=== PATIENT | female | born 1985 | race Caucasian/White ===

== ENCOUNTER 2017-03-20 22:35 | Emergency (ER) | payer BC, OTHER ==
[~2017-03-20] VITALS: Ht 154.9 cm; Wt 83.8 kg
[~2017-03-20 22:35] MED LIST: GARC1TAB PO; MULT-728 PO
[2017-03-20 22:41] VITALS: TEMP 36.6; Ht 154.9 cm; Wt 83.8 kg
[2017-03-20] MEDS ORDERED: ASPIRIN 81 MG CHEW PO STA (23:26)
[2017-03-20] MEDS ORDERED: KETOROLAC TROMETHAMINE 60 MG/2 ML VIAL IM STA (23:26)
[2017-03-20] MEDS ORDERED: LEVO50TA6 PO (23:29)
[2017-03-20] MEDS ORDERED: IBUP-1050 PO (23:29)
[2017-03-20] MEDS ORDERED: MULT-506 PO (23:29)
[2017-03-20] MEDS ORDERED: ACET-1256 PO (23:29)
[2017-03-20 23:40] VITALS: BP 112/67; PULSE 81; O2SAT 100
--- NOTE | 2017-03-21 01:31 | EMERGENCY ROOM VISIT NOTE ---
History Report prepared by Marli: Wendie Guzman Under the Supervision of: Dr. Riki Chirinos D.O. First contact with patient: 22:59 Chief Complaint: SUN BURN Stated Complaint: REALLY BAD SUNBURN,BLISTERS COVERING LEGS History of Present Illness The patient is a 31 year old female who presents to the Emergency Room with complaints of persistent sunburn starting 4 days ago. [place] the [place] She was not wearing sunscreen. She started having bubbles on her legs around 36 hours later. The bubbles have worsened since then. She does not have bubbles elsewhere on her skin. She has been taking Tylenol and ibuprofen to no significant relief. She has been taking multivitamins. She felt nauseous earlier. She has no other complaints. She denies any fever, headache, chest pain, SOB, or vomiting. Her tetanus is up to date. Source of History: patient Onset: 4 days ago Position: other (skin) Quality: other (sunburn) Timing: other (persistent) Associated Symptoms: + nausea, No fevers, No headache, No chest pain, No SOB , No vomiting Note: Pt reports blistering. Review of Systems See HPI for pertinent positives & negatives. A total of 10 systems reviewed and were otherwise negative. Past Medical & Surgical Medical Problems: (1) No Known Active Medical Problems Family History Diabetes mellitus FH: cancer FH: heart disease Hypertension Kidney disease Kidney stones Social History Smoking Status: Never Smoker Drug Use: none Marital Status: in relationship Housing Status: lives with significant other Occupation Status: employed Current/Historical Medications Scheduled Levothyroxine Sodium (Levothyroxine Sodium), 50 MCG PO DAILY Multivitamin (Multivitamin), 1 TAB PO DAILY Scheduled PRN Acetaminophen (Tylenol), 1,000 MG PO Q4 PRN for Pain Ibuprofen (Advil), 200-600 MG PO Q4H PRN for Pain Allergies Coded Allergies: Pecan (Verified Allergy, Severe, HIVES-SWELLING, 03/20/17) POLLEN (Verified Allergy, Intermediate, SNEEZING, RUNNY NOSE, ITCHY EYES. , 03/20/17) Penicillins (Verified Allergy, Unknown, FAMILY HX, 03/20/17) Physical Exam Vital Signs Date Time Temp Pulse Resp B/P (MAP) Pulse Ox O2 Delivery O2 Flow Rate FiO2 03/20/17 23:40 81 20 112/67 100 Room Air 03/20/17 23:12 Room Air 03/20/17 22:41 36.6 84 20 143/81 92 Room Air Physical Exam GENERAL: sitting up in bed, disheveled, no acute distress, nontoxic EYE EXAM: normal conjunctiva OROPHARYNX: no exudate, no erythema, lips, buccal mucosa, and tongue normal and mucous membranes are moist NECK: supple, no nuchal rigidity, no adenopathy, non-tender LUNGS: Clear to auscultation. Normal chest wall mechanics HEART: no murmurs, S1 normal and S2 normal ABDOMEN: abdomen soft, non-tender, normo-active bowel sounds, no masses, no rebound or guarding. BACK: Back is symmetrical on inspection and there is no deformity, no midline tenderness, no CVA tenderness. SKIN: diffuse erythematous rash on anterior aspect of the entire body with multiple vesicles in the lower extremities with clear/yellow fluid the largest being 5 cm x 3 cm on the left leg and 3 cm x 2 cm on the right leg. DP 2/4, gross sensation intact, old ruptured blisters on right thigh. UPPER EXTREMITIES: upper extremities are grossly normal. LOWER EXTREMITIES: No pitting edema. NEURO EXAM: Normal sensorium, cranial nerves II-XII grossly intact, normal speech, no gross weakness of arms, no gross weakness of legs. Medical Decision & Procedures Medications Administered Medications (Trade) Dose Ordered Sig/Kendra Route Start Time Stop Time Status Last Admin Dose Admin Aspirin (Aspirin Chew) 324 mg NOW STAT PO 03/20/17 23:26 03/20/17 23:28 DC 03/20/17 23:35 324 MG Ketorolac Tromethamine (Toradol Inj) 60 mg NOW STAT IM 03/20/17 23:26 03/20/17 23:28 DC 03/20/17 23:36 60 MG ED Course ED COURSE: Vital signs were reviewed and showed normal vitals The patients medical record was reviewed The above diagnostic studies were performed and reviewed. ED treatments and interventions as stated above. 2300: The patient was evaluated in room A12B. A complete history and physical examination was performed. 2326: Toradol Inj 60 mg IM, Aspirin 324 mg PO. 2328: Upon reevaluation, the patient is doing well.I discussed my findings with the patient and she understands and agrees with the treatment plan. Based on the patients age, coexisting illnesses, exam and lab findings the decision to treat as an outpatient was made. The patient remained stable while under my care. The patient appeared well at the time of discharge. Medical Decision Differential diagnosis includes etiologies such as cellulitis, abscess, MRSA infection, DVT, necrotizing fasciitis, dermatitis, drug eruption, as well as others were entertained. Medication Reconciliation: I attest that I have personally reviewed the patient' s current medication list. Blood pressure screening: Patient was found to have normal blood pressure on screening and does not require follow-up. Patient is a 31-year-old female who presents the ER for diffuse sunburn on her lower extremities. She does have partial-thickness werner with blistering on bilateral tibias. There is no signs of infection. No fevers greater than 100.4. Patient otherwise well-appearing. The burn is just on the anterior portion of her legs and upper extremities. There is no obvious infection. She has been taking Tylenol and Motrin. She was given Toradol and aspirin. Recommended continuing a multivitamin. She was discharged to follow-up with her primary care doctor with first-degree and partial-thickness second-degree sunburn. Recommended continuing aloe and patient will follow up with PCP in 2 days. Discussed with Pt concerning signs and symptoms to watch out for. Pt was instructed to follow up with their PCP and discussed with the patient their option to return to the ED at anytime for persistent or worsening symptoms. The appropriate anticipatory guidance and out-patient management, including indications for return to the emergency department, were explained at length to the patient and understood. Impression Primary Impression: Partial thickness sunburn Scribe Attestation The scribe's documentation has been prepared under my direction and personally reviewed by me in its entirety. I confirm that the note above accurately reflects all work, treatment, procedures, and medical decision making performed by me. Departure Information Dispostion Home / Self-Care Referrals Luna Matthews D.O. (PCP) Forms HOME CARE DOCUMENTATION FORM, IMPORTANT VISIT INFORMATION, WORK / SCHOOL INSTRUCTIONS Patient Instructions My [facility], [place] Additional Instructions Please follow up with your primary care doctor with in the next 24 hours. Any worsening of your symptoms, please return to the ED immediately. This includes purulent discharge from wounds, fevers greater than 100.4, worsening pain, or any other concerning signs or symptoms from her standpoint. Please use Motrin and Tylenol as needed for pain. Please continue multivitamin. Please apply an antibiotic ointment to the blisters as needed. Please use aloe as needed.
== END 2017-03-21 00:01 | disposition home or self-care (01) ==
LOC: C.EDB 22:36 → C.EDA 03-21 00:01
DX: L55.1 Sunburn of second degree (principal); Z79.899 Other long term (current) drug therapy; Z88.0 Allergy status to penicillin; Z91.018 Allergy to other foods; Z91.09 Other allergy status, other than to drugs and biological substances; Z83.3 Family history of diabetes mellitus; Z80.9 Family history of malignant neoplasm, unspecified; Z82.49 Family history of ischemic heart disease and other diseases of the circulatory system; Z84.1 Family history of disorders of kidney and ureter

== ENCOUNTER → 2017-04-24 | Outpatient (CLI) | payer OTHER ==
[~2017-04-24] MED LIST changes: +ACET-1256 PO; -GARC1TAB PO; +IBUP-1050 PO; +LEVO50TA6 PO; +MULT-506 PO; -MULT-728 PO
[2017-04-24 09:39] LABS: BASO % 0.4 %; BASO ABS # 0.02 K/uL (0-0.2); COMPLETE YES; EOS % 2.5 %; HEMATOCRIT 43.2 % (37-47); IG% 0.4 %; LYMPH % 32.6 %; LYMPH ABS # 1.82 K/uL (1.2-3.4); MEAN CELL VOLUME 85.9 fL (80-100); MEAN CORPUSCULAR HEMOGLOBIN 28.4 pg (25-34); MEAN CORPUSCULAR HGB CONC 33.1 g/dl (32-36); MONO % 10.6 %; NEUT % 53.5 %; PLATELET COUNT 196 K/uL (130-400); RED BLOOD COUNT 5.03 M/uL (4.2-5.4); WHITE BLOOD COUNT 5.58 K/uL (4.8-10.8)
[2017-04-24 10:08] LABS: BLOOD UREA NITROGEN 12 mg/dl (7-18); BUN/CREATININE RATIO 11.9 (10-20); CALCIUM 9.1 mg/dl (8.5-10.1); CARBON DIOXIDE 29 mmol/L (21-32); CHLORIDE 106 mmol/L (98-107); CREATININE 0.97 mg/dl (0.60-1.20); GLUCOSE 83 mg/dl (70-99); POTASSIUM 3.8 mmol/L (3.5-5.1); SODIUM 140 mmol/L (136-145)
== END | disposition home or self-care (01) ==
LOC: C.LAB 08:51
PROVIDERS: ATTEND Family Medicine
DX: E03.9 Hypothyroidism, unspecified (principal); N92.6 Irregular menstruation, unspecified

== ENCOUNTER 2019-07-24 07:27 | Inpatient (IN) ==
[2019-07-24] MEDS ORDERED: OXYTOCIN 30 UNITS/500 ML BAG IV PRN (08:55)
[2019-07-24] MEDS ORDERED: DINOPROSTONE 10 MG INSERT PV ONE ×2 (08:55→22:13)
--- NOTE | 2019-07-24 09:01 | Obstetrical Progress Note ---
Date of Service July 24, 2019 Subjective Admit Note 33 F P0000 at 40.5 weeks admitted to L&D for induction for post-dates . FHT Cat 1 with no contractions. Her GBS is positive. No problems. Cervix is closed/50/-3/vertex/soft. Will start ripening cervix with Cervidil. Results & Data Vital Signs (Past 12 Hours) Vital Signs Temp Pulse Resp BP 07/24/19 07:31 37.1 C 100 H 20 134/85
[2019-07-24] MEDS ORDERED: PENICILLIN G POTASSIUM 6 MU in DEXTROSE 5% 250 ML IV ONE (09:30)
--- NOTE | 2019-07-24 09:30 | Obstetrical Progress Note ---
Date of Service July 24, 2019 Physical Exam Genitourinary: OB Exam Monitor Tracing: + external FHT monitor used, + external uterine monitor used and + category I Cervidil 10 mg placed vaginally Results & Data Vital Signs (Past 12 Hours) Vital Signs Temp Pulse Resp BP 07/24/19 09:28 90 106/59 L 07/24/19 07:31 37.1 C 100 H 20 134/85
[2019-07-24 09:32] LABS: Hematocrit (blood only) 33.6 % (37-47); Hemoglobin 11.4 g/dL (12.0-16.0); Mean Corpuscular Hemoglobin 29.5 pg (25-34); Mean Corpuscular Volume 86.8 fL (80-100); Mean Platelet Volume 11.4 fL (7.4-10.4); Platelet Count 150 K/uL (130-400); RDW Standard Deviation 46.7 fL (36.4-46.3); Red Blood Count 3.87 M/uL (4.2-5.4); White Blood Count 10.21 K/uL (4.8-10.8)
[2019-07-24 09:40] LABS: Mean Corpuscular Hgb Conc 33.9 g/dL (32-36)
[2019-07-24] MEDS: BUTORPHANOL TARTRATE 1 MG/ML VIAL IV PRN ×2 (20:43→23:52)
--- NOTE | 2019-07-24 21:40 | Obstetrical Progress Note ---
Date of Service July 24, 2019 Physical Exam Genitourinary: Manual OB Exam: + cervical dilation 1 cm, + cervical effacement 50% and + station high OB Exam Monitor Tracing: + external FHT monitor used, + external uterine monitor used, + category I and + normal FHT variability Cervidil removed from vagina. Will plan to place another Cervidil. Results & Data Vital Signs (Past 12 Hours) Vital Signs Temp Pulse Resp BP Pulse Ox 07/24/19 21:33 90 95 07/24/19 21:28 103 H 98 07/24/19 21:23 80 94 07/24/19 21:18 82 94 07/24/19 21:13 86 94 07/24/19 21:08 95 H 94 07/24/19 21:03 85 94 07/24/19 20:58 90 95 07/24/19 20:53 86 96 07/24/19 20:52 98 H 92 07/24/19 20:48 101 H 97 07/24/19 20:43 97 H 97 07/24/19 20:37 97 H 93 07/24/19 18:57 37.3 C 18 07/24/19 18:56 105 H 146/78 H 07/24/19 15:04 36.7 C 88 18 121/72 07/24/19 11:31 88 139/72 07/24/19 11:30 37.3 C 20
--- NOTE | 2019-07-24 23:24 | Obstetrical Progress Note ---
Date of Service July 24, 2019 Physical Exam Genitourinary: Cervidil 10 mg placed vaginally. Results & Data Vital Signs (Past 12 Hours) Vital Signs Temp Pulse Resp BP Pulse Ox 07/24/19 21:53 92 H 97 07/24/19 21:48 103 H 98 07/24/19 21:43 78 96 07/24/19 21:38 93 H 97 07/24/19 21:33 90 95 07/24/19 21:28 103 H 98 07/24/19 21:23 80 94 07/24/19 21:18 82 94 07/24/19 21:13 86 94 07/24/19 21:08 95 H 94 07/24/19 21:03 85 94 07/24/19 20:58 90 95 07/24/19 20:53 86 96 07/24/19 20:52 98 H 92 07/24/19 20:48 101 H 97 07/24/19 20:43 97 H 97 07/24/19 20:37 97 H 93 07/24/19 18:57 37.3 C 18 07/24/19 18:56 105 H 146/78 H 07/24/19 15:04 36.7 C 88 18 121/72 07/24/19 11:31 88 139/72 07/24/19 11:30 37.3 C 20
[2019-07-25] MEDS: BUTORPHANOL TARTRATE 1 MG/ML VIAL IV PRN ×2 (00:12→03:22)
--- NOTE | 2019-07-25 04:03 | Obstetrical Progress Note ---
Date of Service July 25, 2019 Physical Exam Genitourinary: Manual OB Exam: + cervical dilation 1 cm, + cervical effacement 70% and + station high OB Exam Monitor Tracing: + external FHT monitor used, + external uterine monitor used and + category I Patient with Cervidil in place contractions starting to be painful and she is requesting an eoidural. Results & Data Vital Signs (Past 12 Hours) Vital Signs Temp Pulse Resp BP Pulse Ox 07/25/19 03:59 118 H 97 07/25/19 03:54 107 H 95 07/25/19 03:49 109 H 125/77 96 07/25/19 03:48 37.2 C 18 07/25/19 03:44 92 H 91 07/25/19 03:39 88 92 07/25/19 03:38 93 H 87 L 07/25/19 03:34 91 H 91 07/25/19 03:29 93 H 93 07/25/19 00:00 37.2 C 18 07/24/19 23:42 89 120/67 07/24/19 21:53 92 H 97 07/24/19 21:48 103 H 98 07/24/19 21:43 78 96 07/24/19 21:38 93 H 97 07/24/19 21:33 90 95 07/24/19 21:28 103 H 98 07/24/19 21:23 80 94 07/24/19 21:18 82 94 07/24/19 21:13 86 94 07/24/19 21:08 95 H 94 07/24/19 21:03 85 94 07/24/19 20:58 90 95 07/24/19 20:53 86 96 07/24/19 20:52 98 H 92 07/24/19 20:48 101 H 97 07/24/19 20:43 97 H 97 07/24/19 20:37 97 H 93 07/24/19 18:57 37.3 C 18 07/24/19 18:56 105 H 146/78 H
[2019-07-25] MEDS: LACTATED RINGER'S 1,000 ML IV PRN ×3 (04:05→16:12)
[2019-07-25] MEDS ORDERED: BUPIVACAINE 0.25% 30 ML VIAL ONE ×2 (04:06→17:57)
[2019-07-25] MEDS ORDERED: fentaNYL 2MCG/ML ROPIV 1.25MG/ML 100 ML BAG EPI ONE (04:06)
[2019-07-25] MEDS ORDERED: ePHEDrine sulfate 50 MG/ML AMP ONE (04:06)
[2019-07-25] MEDS ORDERED: fentaNYL citrate 100 MCG/2 ML VIAL ONE (04:06)
--- NOTE | 2019-07-25 04:32 | Anesthesiology Consultation ---
Date of Service July 25, 2019 Assessment & Plan (1) Encounter for pre-operative examination: Chart Review Chart Review: Acceptable Risk for Labor Epidural History Height/Weight Height: 5 ft 1 in Weight: 98.43 kg Allergies Allergy/AdvReac Type Severity Reaction Status Date / Time pecan nut Allergy Severe HIVES-SWELL Verified 07/24/19 07:39 ING pollen extracts Allergy Intermediate SNEEZING, Verified 07/24/19 07:39 RUNNY NOSE, ITCHY EYES. Medications Home Medications Medication Instructions Recorded Confirmed Last Taken PNV cmb#95-ferrous fumarate-FA 1 tab PO DAILY 04/19/19 07/24/19 07/23/19 21:00 [] Active Medications Generic Name Dose Route Start Last Admin Trade Name Freq PRN Reason Stop Dose Admin Butorphanol Tartrate 1 mg 07/24/19 20:21 07/25/19 03:22 Stadol IV 08/23/19 20:20 1 mg Q2H PRN Administration Pain Lactated Ringer's 1,000 mls @ 125 mls/hr 07/24/19 08:55 07/25/19 04:05 Lr IV 07/26/19 08:54 999 mls/hr .Q8H PRN Administration L&D Protocol Protocol Past Medical History Medical History No significant past medical history Past Surgical History Surgical History History of tonsillectomy Social History Smoking Status: Never smoker Hx Alcohol Use: No Hx Substance Use: No substance use type: does not use Physical Exam Vital Signs Last Vital Signs Temp 37.2 C 07/25/19 03:48 Pulse 90 07/25/19 04:29 Resp 18 07/25/19 03:48 BP 125/77 07/25/19 03:49 Pulse Ox 95 07/25/19 04:29 Testing Laboratory Results 07/24/19 09:16
[2019-07-25] MEDS ORDERED: ONDANSETRON INJ 2 MG/ML 2 ML VIAL IV PRN (05:01)
[2019-07-25] MEDS ORDERED: NALOXONE HCL 1 MG in SODIUM CHLORIDE 0.9% 1000ML 1,000 ML IV PRN (05:01)
[2019-07-25] MEDS ORDERED: ePHEDrine sulfate 50 MG/ML AMP IV PRN (05:01)
[2019-07-25] MEDS ORDERED: NALOXONE HCL 0.4 MG/1 ML VIAL/CARP IV PRN (05:01)
[2019-07-25] MEDS ORDERED: fentaNYL 2MCG/ML ROPIV 1.25MG/ML 100 ML BAG EPI PRN (05:01)
--- NOTE | 2019-07-25 07:39 | Labor Progress Brief Note ---
Date of Service July 25, 2019 Pt signed out to me Met pt and reviewed care FHR; CAT1 Ctx 4-6mins /50/-3 Received Cervidil X2 last Cervidil was only for 4 hrs Plan Cytotec X1 reevaluate in 4 hrs Pt agrees with plan Results & Data Vital Signs (Past 12 Hours) Vital Signs Temp Pulse Resp BP Pulse Ox 07/25/19 07:32 98 H 94 07/25/19 07:27 109 H 95 07/25/19 07:22 102 H 94 07/25/19 07:21 110 H 119/65 07/25/19 07:17 109 H 96 07/25/19 07:12 110 H 95 07/25/19 07:07 105 H 126/68 96 07/25/19 07:05 37.3 C 20 07/25/19 07:02 106 H 93 07/25/19 07:00 18 07/25/19 06:57 94 H 94 07/25/19 06:52 95 H 94 07/25/19 06:51 88 123/56 L 07/25/19 06:47 90 93 07/25/19 06:42 94 H 93 07/25/19 06:37 89 94 07/25/19 06:36 100 H 121/57 L 07/25/19 06:32 91 H 94 07/25/19 06:30 16 07/25/19 06:27 92 H 92 07/25/19 06:22 86 124/63 93 07/25/19 06:17 91 H 93 07/25/19 06:15 16 07/25/19 06:12 94 H 93 07/25/19 06:07 109 H 94 07/25/19 06:03 83 121/59 L 88 L 07/25/19 06:02 90 92 07/25/19 06:00 18 07/25/19 05:58 85 117/64 07/25/19 05:57 87 92 07/25/19 05:53 87 119/62 07/25/19 05:52 90 92 07/25/19 05:49 85 121/70 89 L 07/25/19 05:47 89 93 07/25/19 05:45 16 07/25/19 05:43 90 124/70 07/25/19 05:42 88 93 07/25/19 05:38 83 119/69 07/25/19 05:37 89 93 07/25/19 05:34 83 123/72 07/25/19 05:32 91 H 92 07/25/19 05:30 18 07/25/19 05:28 85 122/73 07/25/19 05:27 90 93 07/25/19 05:23 91 H 123/71 07/25/19 05:22 91 H 94 07/25/19 05:18 93 H 121/72 07/25/19 05:17 92 H 94 07/25/19 05:15 16 07/25/19 05:13 106 H 120/72 07/25/19 05:12 95 H 94 07/25/19 05:08 104 H 126/76 07/25/19 05:07 108 H 97 07/25/19 05:06 106 H 123/69 07/25/19 05:04 108 H 119/71 07/25/19 05:02 104 H 126/74 94 07/25/19 05:00 98 H 121/71 07/25/19 04:58 98 H 128/78 07/25/19 04:57 100 H 94 07/25/19 04:52 110 H 95 07/25/19 04:47 109 H 96 07/25/19 04:42 118 H 95 07/25/19 04:34 92 H 93 07/25/19 04:29 90 95 07/25/19 04:24 93 H 92 07/25/19 04:19 100 H 95 07/25/19 04:14 95 H 94 07/25/19 04:09 101 H 94 07/25/19 04:04 90 94 07/25/19 03:59 118 H 97 07/25/19 03:54 107 H 95 07/25/19 03:49 109 H 125/77 96 07/25/19 03:48 37.2 C 18 07/25/19 03:44 92 H 91 07/25/19 03:39 88 92 07/25/19 03:38 93 H 87 L 07/25/19 03:34 91 H 91 07/25/19 03:29 93 H 93 07/25/19 00:00 37.2 C 18 07/24/19 23:42 89 120/67 07/24/19 21:53 92 H 97 07/24/19 21:48 103 H 98 07/24/19 21:43 78 96 07/24/19 21:38 93 H 97 07/24/19 21:33 90 95 07/24/19 21:28 103 H 98 07/24/19 21:23 80 94 07/24/19 21:18 82 94 07/24/19 21:13 86 94 07/24/19 21:08 95 H 94 07/24/19 21:03 85 94 07/24/19 20:58 90 95 07/24/19 20:53 86 96 07/24/19 20:52 98 H 92 07/24/19 20:48 101 H 97 07/24/19 20:43 97 H 97 07/24/19 20:37 97 H 93
[2019-07-25] MEDS ORDERED: miSOPROStoL 50 MCG TAB PO SCH (07:45)
[2019-07-25] MEDS ORDERED: OXYTOCIN 30 UNITS/500 ML BAG IV PRN (12:50)
--- NOTE | 2019-07-25 12:50 | Labor Progress Brief Note ---
Date of Service July 25, 2019 Doing well FHR; CAT! Ctx; 2-5mins VE; 2/50/-2/post/soft EFW; 8-9lbs will start Pitocin augmentation Results & Data Vital Signs (Past 12 Hours) Vital Signs Temp Pulse Resp BP Pulse Ox 07/25/19 12:47 104 H 94 07/25/19 12:42 104 H 94 07/25/19 12:37 99 H 94 07/25/19 12:36 94 H 134/77 07/25/19 12:32 89 94 07/25/19 12:27 95 H 93 07/25/19 12:22 95 H 92 07/25/19 12:21 99 H 125/69 07/25/19 12:17 94 H 93 07/25/19 12:12 100 H 94 07/25/19 12:10 37.3 C 20 07/25/19 12:07 111 H 96 07/25/19 12:06 108 H 136/74 07/25/19 12:02 106 H 94 07/25/19 11:57 103 H 95 07/25/19 11:52 98 H 94 07/25/19 11:51 102 H 133/84 07/25/19 11:47 106 H 95 07/25/19 11:42 101 H 96 07/25/19 11:37 102 H 95 07/25/19 11:36 95 H 146/80 H 07/25/19 11:32 104 H 96 07/25/19 11:27 106 H 95 07/25/19 11:23 104 H 158/81 H 07/25/19 11:22 104 H 93 07/25/19 11:17 98 H 94 07/25/19 11:12 114 H 95 07/25/19 11:07 103 H 134/60 95 07/25/19 11:02 101 H 94 07/25/19 10:57 96 H 94 07/25/19 10:52 100 H 92 07/25/19 10:51 98 H 118/64 07/25/19 10:47 98 H 93 07/25/19 10:42 98 H 94 07/25/19 10:37 100 H 93 07/25/19 10:36 91 H 112/65 07/25/19 10:32 97 H 93 07/25/19 10:30 16 07/25/19 10:27 99 H 93 07/25/19 10:22 98 H 94 07/25/19 10:21 100 H 128/65 07/25/19 10:17 112 H 94 07/25/19 10:12 99 H 94 07/25/19 10:07 97 H 94 07/25/19 10:06 91 H 120/64 07/25/19 10:02 97 H 93 07/25/19 10:00 20 07/25/19 09:57 102 H 94 07/25/19 09:52 100 H 93 07/25/19 09:51 95 H 116/57 L 07/25/19 09:47 99 H 94 07/25/19 09:42 99 H 93 07/25/19 09:37 97 H 122/61 93 07/25/19 09:32 96 H 94 07/25/19 09:27 97 H 94 07/25/19 09:22 104 H 132/82 95 07/25/19 09:17 95 H 93 07/25/19 09:12 90 92 07/25/19 09:07 90 92 07/25/19 09:06 85 119/59 L 07/25/19 09:02 92 H 92 07/25/19 09:00 18 07/25/19 08:57 91 H 92 07/25/19 08:52 89 93 07/25/19 08:51 90 124/60 19 08:47 89 94 07/25/19 08:42 90 92 07/25/19 08:37 106 H 130/61 93 07/25/19 08:32 103 H 94 07/25/19 08:27 92 H 92 07/25/19 08:22 100 H 93 07/25/19 08:21 100 H 143/75 H 07/25/19 08:17 101 H 94 07/25/19 08:12 105 H 94 07/25/19 08:07 110 H 95 07/25/19 08:06 115 H 128/73 07/25/19 08:02 104 H 95 07/25/19 07:57 112 H 95 17 07:52 106 H 95 07/25/19 07:51 106 H 134/68 19 07:47 112 H 95 07/25/19 07:42 93 H 94 07/25/19 07:37 98 H 94 07/25/19 07:36 104 H 130/69 07/25/19 07:32 98 H 94 07/25/19 07:27 109 H 95 07/25/19 07:22 102 H 94 07/25/19 07:21 110 H 119/65 07/25/19 07:17 109 H 96 07/25/19 07:12 110 H 95 07/25/19 07:07 105 H 126/68 96 07/25/19 07:05 37.3 C 20 07/25/19 07:02 106 H 93 07/25/19 07:00 18 07/25/19 06:57 94 H 94 07/25/19 06:52 95 H 94 07/25/19 06:51 88 123/56 L 07/25/19 06:47 90 93 07/25/19 06:42 94 H 93 07/25/19 06:37 89 94 07/25/19 06:36 100 H 121/57 L 07/25/19 06:32 91 H 94 07/25/19 06:30 16 07/25/19 06:27 92 H 92 07/25/19 06:22 86 124/63 93 07/25/19 06:17 91 H 93 07/25/19 06:15 16 07/25/19 06:12 94 H 93 07/25/19 06:07 109 H 94 07/25/19 06:03 83 121/59 L 88 L 07/25/19 06:02 90 92 07/25/19 06:00 18 07/25/19 05:58 85 117/64 07/25/19 05:57 87 92 07/25/19 05:53 87 119/62 07/25/19 05:52 90 92 07/25/19 05:49 85 121/70 89 L 07/25/19 05:47 89 93 07/25/19 05:45 16 07/25/19 05:43 90 124/70 07/25/19 05:42 88 93 07/25/19 05:38 83 119/69 07/25/19 05:37 89 93 07/25/19 05:34 83 123/72 07/25/19 05:32 91 H 92 07/25/19 05:30 18 10/17/19 05:28 85 122/73 07/25/19 05:27 90 93 07/25/19 05:23 91 H 123/71 07/25/19 05:22 91 H 94 07/25/19 05:18 93 H 121/72 07/25/19 05:17 92 H 94 07/25/19 05:15 16 07/25/19 05:13 106 H 120/72 07/25/19 05:12 95 H 94 07/25/19 05:08 104 H 126/76 07/25/19 05:07 108 H 97 07/25/19 05:06 106 H 123/69 07/25/19 05:04 108 H 119/71 07/25/19 05:02 104 H 126/74 94 07/25/19 05:00 98 H 121/71 07/25/19 04:58 98 H 128/78 07/25/19 04:57 100 H 94 07/25/19 04:52 110 H 95 07/25/19 04:47 109 H 96 07/25/19 04:42 118 H 95 07/25/19 04:34 92 H 93 07/25/19 04:29 90 95 07/25/19 04:24 93 H 92 07/25/19 04:19 100 H 95 07/25/19 04:14 95 H 94 07/25/19 04:09 101 H 94 07/25/19 04:04 90 94 07/25/19 03:59 118 H 97 07/25/19 03:54 107 H 95 07/25/19 03:49 109 H 125/77 96 07/25/19 03:48 37.2 C 18 07/25/19 03:44 92 H 91 07/25/19 03:39 88 92 07/25/19 03:38 93 H 87 L 07/25/19 03:34 91 H 91 07/25/19 03:29 93 H 93
[2019-07-25] MEDS: PENICILLIN G POTASSIUM 3 MU in DEXTROSE 5% 100 ML IV PRN ×2 (17:40→21:40)
--- NOTE | 2019-07-25 18:36 | Anesthesiology Progress Note ---
Date of Service July 25, 2019 Subjective Called by RN for increasing pain. Patient had epidural placed at 5am today, was working well but less effective over the course of last 2-3 horus. She has pushed PCEA button several times and rate was increased to 12cc/hr by RN with minimial benefit. Sensory level checked with ice cubes only effective to L1 on L and T10 on R. She was hand bolused with 10cc of 0.125% marcaine which significantly improved her pain control, and PCEA interval was decreased from 20min to 10min to help maintain anesthetic level. Physical Exam Vital Signs: Last Vital Signs Temp 37.2 C 07/25/19 15:00 Pulse 108 H 07/25/19 18:29 Resp 16 07/25/19 15:55 BP 148/85 H 07/25/19 18:22 Pulse Ox 84 L 07/25/19 18:29 Results & Data Medications Administered Lactated Ringer's (Lr) 1,000 mls @ 125 mls/hr IV .Q8H PRN; Protocol PRN Reason: L&D Protocol Stop: 07/26/19 08:54 Last Infusion: 07/25/19 17:40 Dose: 0 mls/hr Documented by: [id number] Admin: 07/25/19 16:12 Dose: 125 mls/hr Documented by: [id number] Infusion: 07/25/19 14:37 Dose: 125 mls/hr Documented by: [id number] Admin: 07/25/19 06:37 Dose: 125 mls/hr Documented by: [id number] Infusion: 07/25/19 06:29 Dose: 999 mls/hr Documented by: [id number] Infusion: 07/25/19 06:10 Dose: 999 mls/hr Documented by: [id number] Infusion: 07/25/19 04:35 Dose: 125 mls/hr Documented by: [id number] Admin: 07/25/19 04:05 Dose: 999 mls/hr Documented by: [id number] Penicillin G Potassium 3 mu/ (Dextrose) 106 mls @ 100 mls/hr IV Q4H PRN PRN Reason: Give until delivery Stop: 08/03/19 08:54 Last Admin: 07/25/19 17:40 Dose: 100 mls/hr Documented by: [id number] Oxytocin (Pitocin) 30 units in 500 mls @ 14 mls/hr IV .Q24H PRN; Protocol PRN Reason: Labor Induction/Augmentation Stop: 07/27/19 12:49 Last Titration: 07/25/19 18:10 Dose: 0.96 units/hr, 16 mls/hr Documented by: [id number] Titration: 07/25/19 16:40 Dose: 0.84 units/hr, 14 mls/hr Documented by: [id number] Titration: 07/25/19 16:05 Dose: 0.72 units/hr, 12 mls/hr Documented by: [id number] Titration: 07/25/19 15:25 Dose: 0.6 units/hr, 10 mls/hr Documented by: [id number] Titration: 07/25/19 14:50 Dose: 0.48 units/hr, 8 mls/hr Documented by: [id number] Titration: 07/25/19 14:11 Dose: 0.36 units/hr, 6 mls/hr Documented by: [id number] Titration: 07/25/19 13:38 Dose: 0.24 units/hr, 4 mls/hr Documented by: [id number] Admin: 07/25/19 13:08 Dose: 0.12 units/hr, 2 mls/hr Documented by: [id number] Cosigned by: [id number] Misoprostol (Cytotec) 50 mcg PO ONCE JALEN Stop: 08/24/19 07:44 Last Admin: 07/25/19 08:07 Dose: 50 mcg Documented by: [id number]
[2019-07-25] MEDS: fentaNYL 2MCG/ML ROPIV 1.25MG/ML 100 ML BAG EPI PRN ×2 (19:12→23:42)
--- NOTE | 2019-07-25 19:43 | Labor Progress Brief Note ---
Date of Service July 25, 2019 Pt doing well pit; 16mu Ctx 2-5mins SROM 19;10 - Clear VE; 2/50/-2 continue Pitocin augmentation Results & Data Vital Signs (Past 12 Hours) Vital Signs Temp Pulse Resp BP Pulse Ox 07/25/19 19:38 83 96 07/25/19 19:37 86 128/72 07/25/19 19:34 96 H 146/73 H 07/25/19 19:33 97 H 98 07/25/19 19:28 97 H 97 07/25/19 19:23 92 H 97 07/25/19 19:22 95 H 157/105 H 07/25/19 19:18 103 H 99 07/25/19 19:15 37.3 C 92 H 18 97 07/25/19 19:13 107 H 98 07/25/19 19:08 88 97 07/25/19 19:07 88 129/80 07/25/19 19:03 80 95 07/25/19 18:58 97 H 98 07/25/19 18:53 82 96 07/25/19 18:51 88 131/77 07/25/19 18:48 95 H 99 07/25/19 18:43 96 H 98 07/25/19 18:38 101 H 97 07/25/19 18:37 97 H 137/88 07/25/19 18:33 97 H 96 07/25/19 18:29 108 H 84 L 07/25/19 18:28 108 H 90 07/25/19 18:23 107 H 95 07/25/19 18:22 98 H 148/85 H 07/25/19 18:18 109 H 98 07/25/19 18:16 116 H 88 L 07/25/19 18:13 107 H 97 07/25/19 18:08 92 H 97 07/25/19 18:07 90 121/70 07/25/19 18:04 89 122/71 07/25/19 18:03 98 H 123/73 97 07/25/19 17:58 100 H 97 19 17:53 80 98 07/25/19 17:52 93 H 121/78 19 17:48 95 H 98 19 17:43 97 H 97 07/25/19 17:38 103 H 98 10/17/19 17:36 99 H 125/66 17/19 17:33 91 H 97 17/19 17:31 88 126/64 17/19 17:28 93 H 99 17/19 17:23 83 96 17/19 17:18 81 96 17/19 17:13 93 H 97 17/19 17:08 104 H 99 17/19 17:07 93 H 128/65 17/19 17:03 88 96 17/19 16:58 100 H 98 17/19 16:53 92 H 98 17/19 16:52 94 H 128/70 17/19 16:48 112 H 95 17/19 16:43 91 H 97 17/19 16:38 82 96 17/19 16:36 78 117/60 17/19 16:33 80 96 17/19 16:28 84 96 17/19 16:23 88 96 1719 16:21 96 H 118/59 L 19 16:18 84 95 17/19 16:13 85 97 17/19 16:08 93 H 96 17/19 16:06 81 127/66 07/25/19 16:03 81 96 17/19 15:58 81 96 17/19 15:55 16 17/19 15:53 85 96 17/19 15:51 80 122/63 17/19 15:48 85 97 17/19 15:43 92 H 98 17/19 15:38 88 98 17/19 15:36 95 H 119/55 L 17/19 15:33 91 H 98 17/19 15:28 90 97 17/19 15:23 94 H 98 17/19 15:22 88 122/73 17/19 15:18 104 H 98 17/19 15:13 100 H 98 17/19 15:08 96 H 147/85 H 98 17/19 15:03 94 H 97 17/19 15:00 37.2 C 18 17/19 14:58 100 H 97 17/19 14:53 98 H 96 10/17/19 14:50 20 10/17/19 14:48 96 H 96 07/25/19 14:43 88 96 07/25/19 14:38 92 H 97 07/25/19 14:36 91 H 141/77 H 07/25/19 14:33 104 H 96 07/25/19 14:28 90 96 07/25/19 14:23 90 96 07/25/19 14:21 90 131/79 07/25/19 14:18 110 H 98 07/25/19 14:13 87 96 07/25/19 14:08 91 H 96 07/25/19 14:06 93 H 129/74 07/25/19 14:03 89 97 07/25/19 13:58 101 H 97 07/25/19 13:53 98 H 96 07/25/19 13:52 96 H 129/79 07/25/19 13:48 101 H 97 07/25/19 13:42 105 H 94 07/25/19 13:38 18 07/25/19 13:37 103 H 94 07/25/19 13:36 102 H 122/69 07/25/19 13:32 101 H 94 07/25/19 13:27 102 H 93 07/25/19 13:22 112 H 94 07/25/19 13:21 103 H 125/68 07/25/19 13:17 105 H 94 07/25/19 13:12 108 H 94 07/25/19 13:07 101 H 128/74 93 07/25/19 13:02 106 H 94 07/25/19 13:00 20 07/25/19 12:57 109 H 94 07/25/19 12:52 108 H 129/86 95 07/25/19 12:47 104 H 94 07/25/19 12:42 104 H 94 07/25/19 12:37 99 H 94 07/25/19 12:36 94 H 134/77 07/25/19 12:32 89 94 07/25/19 12:27 95 H 93 07/25/19 12:22 95 H 92 07/25/19 12:21 99 H 125/69 07/25/19 12:17 94 H 93 07/25/19 12:12 100 H 94 07/25/19 12:10 37.3 C 20 10/17/19 12:07 111 H 96 07/25/19 12:06 108 H 136/74 07/25/19 12:02 106 H 94 07/25/19 11:57 103 H 95 07/25/19 11:52 98 H 94 07/25/19 11:51 102 H 133/84 07/25/19 11:47 106 H 95 07/25/19 11:42 101 H 96 07/25/19 11:37 102 H 95 07/25/19 11:36 95 H 146/80 H 07/25/19 11:32 104 H 96 07/25/19 11:27 106 H 95 07/25/19 11:23 104 H 158/81 H 07/25/19 11:22 104 H 93 07/25/19 11:17 98 H 94 07/25/19 11:12 114 H 95 07/25/19 11:07 103 H 134/60 95 07/25/19 11:02 101 H 94 07/25/19 10:57 96 H 94 07/25/19 10:52 100 H 92 07/25/19 10:51 98 H 118/64 07/25/19 10:47 98 H 93 07/25/19 10:42 98 H 94 07/25/19 10:37 100 H 93 07/25/19 10:36 91 H 112/65 07/25/19 10:32 97 H 93 07/25/19 10:30 16 07/25/19 10:27 99 H 93 07/25/19 10:22 98 H 94 07/25/19 10:21 100 H 128/65 07/25/19 10:17 112 H 94 07/25/19 10:12 99 H 94 07/25/19 10:07 97 H 94 07/25/19 10:06 91 H 120/64 07/25/19 10:02 97 H 93 07/25/19 10:00 20 07/25/19 09:57 102 H 94 07/25/19 09:52 100 H 93 19 09:51 95 H 116/57 L 07/25/ 09:47 99 H 94 17/19 09:42 99 H 93 17/19 09:37 97 H 122/61 93 07/25/ 09:32 96 H 94 07/25/19 09:27 97 H 94 07/25/19 09:22 104 H 132/82 95 07/25/19 09:17 95 H 93 07/25/19 09:12 90 92 07/25/19 09:07 90 92 07/25/19 09:06 85 119/59 L 07/25/19 09:02 92 H 92 07/25/19 09:00 18 07/25/19 08:57 91 H 92 07/25/19 08:52 89 93 07/25/19 08:51 90 124/60 07/25/19 08:47 89 94 07/25/19 08:42 90 92 07/25/19 08:37 106 H 130/61 93 07/25/19 08:32 103 H 94 07/25/19 08:27 92 H 92 07/25/19 08:22 100 H 93 07/25/19 08:21 100 H 143/75 H 07/25/19 08:17 101 H 94 07/25/19 08:12 105 H 94 07/25/19 08:07 110 H 95 07/25/19 08:06 115 H 128/73 07/25/19 08:02 104 H 95 07/25/19 07:57 112 H 95 07/25/19 07:52 106 H 95 07/25/19 07:51 106 H 134/68 07/25/19 07:47 112 H 95 07/25/19 07:42 93 H 94
--- NOTE | 2019-07-25 20:24 | Labor Progress Brief Note ---
Date of Service July 25, 2019 Pt doing well FHR' late decels. Pit 20mu VE; 2/50/-2 change in position has not changed status of strip Pitocin d/dane FH scalp electrode placed Results & Data Vital Signs (Past 12 Hours) Vital Signs Temp Pulse Resp BP Pulse Ox 07/25/19 20:20 104 H 126/77 07/25/19 20:18 96 H 99 07/25/19 20:13 82 95 07/25/19 20:08 83 95 07/25/19 20:06 78 122/65 07/25/19 20:03 83 95 07/25/19 19:58 81 96 07/25/19 19:53 83 95 07/25/19 19:51 93 H 126/67 07/25/19 19:48 86 98 07/25/19 19:43 79 95 07/25/19 19:38 83 96 07/25/19 19:37 86 128/72 07/25/19 19:34 96 H 146/73 H 07/25/19 19:33 97 H 98 07/25/19 19:28 97 H 97 07/25/19 19:23 92 H 97 07/25/19 19:22 95 H 157/105 H 07/25/19 19:18 103 H 99 07/25/19 19:15 37.3 C 92 H 18 97 07/25/19 19:13 107 H 98 07/25/19 19:08 88 97 07/25/19 19:07 88 129/80 07/25/19 19:03 80 95 07/25/19 18:58 97 H 98 07/25/19 18:53 82 96 07/25/19 18:51 88 131/77 07/25/19 18:48 95 H 99 07/25/19 18:43 96 H 98 07/25/19 18:38 101 H 97 07/25/19 18:37 97 H 137/88 07/25/19 18:33 97 H 96 07/25/19 18:29 108 H 84 L 07/25/19 18:28 108 H 90 07/25/19 18:23 107 H 95 07/25/19 18:22 98 H 148/85 H 07/25/19 18:18 109 H 98 07/25/19 18:16 116 H 88 L 10/17/19 18:13 107 H 97 17/19 18:08 92 H 97 17/19 18:07 90 121/70 17/19 18:04 89 122/71 17/19 18:03 98 H 123/73 97 17/19 17:58 100 H 97 17/19 17:53 80 98 17/19 17:52 93 H 121/78 17/19 17:48 95 H 98 17/19 17:43 97 H 97 17/19 17:38 103 H 98 17/19 17:36 99 H 125/66 17/19 17:33 91 H 97 17/19 17:31 88 126/64 17/19 17:28 93 H 99 17/19 17:23 83 96 17/19 17:18 81 96 17/19 17:13 93 H 97 17/19 17:08 104 H 99 17/19 17:07 93 H 128/65 17/19 17:03 88 96 17/19 16:58 100 H 98 17/19 16:53 92 H 98 17/19 16:52 94 H 128/70 17/19 16:48 112 H 95 17/19 16:43 91 H 97 17/19 16:38 82 96 17/19 16:36 78 117/60 17/19 16:33 80 96 17/19 16:28 84 96 17/19 16:23 88 96 17/19 16:21 96 H 118/59 L 17/19 16:18 84 95 17/19 16:13 85 97 17/19 16:08 93 H 96 17/19 16:06 81 127/66 17/19 16:03 81 96 17/19 15:58 81 96 17/19 15:55 16 1017/19 15:53 85 96 17/19 15:51 80 122/63 17/19 15:48 85 97 17/19 15:43 92 H 98 17/19 15:38 88 98 17/19 15:36 95 H 119/55 L 10/17/19 15:33 91 H 98 07/25/19 15:28 90 97 07/25/19 15:23 94 H 98 07/25/19 15:22 88 122/73 07/25/19 15:18 104 H 98 07/25/19 15:13 100 H 98 07/25/19 15:08 96 H 147/85 H 98 07/25/19 15:03 94 H 97 07/25/19 15:00 37.2 C 18 07/25/19 14:58 100 H 97 07/25/19 14:53 98 H 96 07/25/19 14:50 20 07/25/19 14:48 96 H 96 07/25/19 14:43 88 96 07/25/19 14:38 92 H 97 07/25/19 14:36 91 H 141/77 H 07/25/19 14:33 104 H 96 07/25/19 14:28 90 96 07/25/19 14:23 90 96 07/25/19 14:21 90 131/79 07/25/19 14:18 110 H 98 07/25/19 14:13 87 96 07/25/19 14:08 91 H 96 07/25/19 14:06 93 H 129/74 07/25/19 14:03 89 97 07/25/19 13:58 101 H 97 07/25/19 13:53 98 H 96 07/25/19 13:52 96 H 129/79 07/25/19 13:48 101 H 97 07/25/19 13:42 105 H 94 07/25/19 13:38 18 07/25/19 13:37 103 H 94 07/25/19 13:36 102 H 122/69 07/25/19 13:32 101 H 94 07/25/19 13:27 102 H 93 07/25/19 13:22 112 H 94 07/25/19 13:21 103 H 125/68 07/25/19 13:17 105 H 94 07/25/19 13:12 108 H 94 07/25/19 13:07 101 H 128/74 93 07/25/19 13:02 106 H 94 07/25/19 13:00 20 07/25/19 12:57 109 H 94 07/25/19 12:52 108 H 129/86 95 07/25/19 12:47 104 H 94 07/25/19 12:42 104 H 94 07/25/19 12:37 99 H 94 07/25/19 12:36 94 H 134/77 07/25/19 12:32 89 94 07/25/19 12:27 95 H 93 07/25/19 12:22 95 H 92 07/25/19 12:21 99 H 125/69 07/25/19 12:17 94 H 93 07/25/19 12:12 100 H 94 07/25/19 12:10 37.3 C 20 07/25/19 12:07 111 H 96 07/25/19 12:06 108 H 136/74 07/25/19 12:02 106 H 94 07/25/19 11:57 103 H 95 07/25/19 11:52 98 H 94 07/25/19 11:51 102 H 133/84 07/25/19 11:47 106 H 95 07/25/19 11:42 101 H 96 07/25/19 11:37 102 H 95 07/25/19 11:36 95 H 146/80 H 07/25/19 11:32 104 H 96 07/25/19 11:27 106 H 95 07/25/19 11:23 104 H 158/81 H 07/25/19 11:22 104 H 93 07/25/19 11:17 98 H 94 07/25/19 11:12 114 H 95 07/25/19 11:07 103 H 134/60 95 07/25/19 11:02 101 H 94 07/25/19 10:57 96 H 94 07/25/19 10:52 100 H 92 07/25/19 10:51 98 H 118/64 07/25/19 10:47 98 H 93 07/25/19 10:42 98 H 94 07/25/19 10:37 100 H 93 07/25/19 10:36 91 H 112/65 07/25/19 10:32 97 H 93 07/25/19 10:30 16 07/25/19 10:27 99 H 93 07/25/19 10:22 98 H 94 07/25/19 10:21 100 H 128/65 07/25/19 10:17 112 H 94 07/25/19 10:12 99 H 94 07/25/19 10:07 97 H 94 07/25/19 10:06 91 H 120/64 07/25/19 10:02 97 H 93 07/25/19 10:00 20 07/25/19 09:57 102 H 94 07/25/19 09:52 100 H 93 07/25/19 09:51 95 H 116/57 L 07/25/19 09:47 99 H 94 07/25/19 09:42 99 H 93 07/25/19 09:37 97 H 122/61 93 07/25/19 09:32 96 H 94 07/25/19 09:27 97 H 94 07/25/19 09:22 104 H 132/82 95 07/25/19 09:17 95 H 93 07/25/19 09:12 90 92 07/25/19 09:07 90 92 07/25/19 09:06 85 119/59 L 07/25/19 09:02 92 H 92 07/25/19 09:00 18 07/25/19 08:57 91 H 92 07/25/19 08:52 89 93 07/25/19 08:51 90 124/60 07/25/19 08:47 89 94 07/25/19 08:42 90 92 07/25/19 08:37 106 H 130/61 93 07/25/19 08:32 103 H 94 07/25/19 08:27 92 H 92
--- NOTE | 2019-07-26 00:14 | Labor Progress Brief Note ---
Date of Service July 26, 2019 VE; 4cm/60/-2 FHR; CAT II Ctx . 2-6mins Pit; 4MU Pt has series of late decels. Pit was turned off. Fetus recovered. Ctx however became absent once Pit was d/dane. pit restarted and at 4cm, late decels are once again present discussed above with pt suspect LGA recommend c/sec pt agrees consent obtained after risk, benefits and alternatives of surgery discussed at length with pt Results & Data Vital Signs (Past 12 Hours) Vital Signs Temp Pulse Resp BP Pulse Ox 07/26/19 00:08 96 H 94 07/26/19 00:06 93 H 138/80 07/26/19 00:03 95 H 96 07/25/19 23:58 82 95 07/25/19 23:53 88 94 07/25/19 23:52 82 123/74 07/25/19 23:48 90 94 07/25/19 23:43 90 93 07/25/19 23:38 97 H 96 07/25/19 23:36 82 129/63 07/25/19 23:33 95 H 94 07/25/19 23:28 91 H 94 07/25/19 23:23 87 94 07/25/19 23:21 89 139/69 07/25/19 23:18 88 94 07/25/19 23:13 94 H 96 07/25/19 23:08 92 H 97 07/25/19 23:06 85 139/71 07/25/19 23:03 99 H 96 07/25/19 23:00 37.0 C 18 07/25/19 22:58 89 97 07/25/19 22:53 88 97 07/25/19 22:51 91 H 133/81 07/25/19 22:48 88 97 07/25/19 22:43 87 97 07/25/19 22:38 91 H 97 07/25/19 22:36 90 135/81 07/25/19 22:33 88 97 07/25/19 22:31 18 07/25/19 22:28 86 98 07/25/19 22:23 87 97 07/25/19 22:21 87 130/82 07/25/19 22:18 94 H 97 07/25/19 22:13 99 H 98 07/25/19 22:08 85 97 10/17/19 22:06 86 117/76 1719 22:03 89 98 19 22:00 18 07/25/19 21:58 85 98 19 21:53 85 98 19 21:51 92 H 121/80 1719 21:48 94 H 97 19 21:43 90 97 1719 21:38 101 H 98 19 21:37 94 H 112/57 L 07/25/19 21:33 94 H 97 19 21:30 20 07/25/19 21:28 90 98 07/25/19 21:23 104 H 97 07/25/19 21:22 88 125/78 07/25/19 21:18 96 H 98 07/25/19 21:15 36.9 C 07/25/19 21:13 92 H 99 07/25/19 21:08 96 H 98 07/25/19 21:07 93 H 116/71 07/25/19 21:03 93 H 98 07/25/19 21:00 18 07/25/19 20:58 93 H 98 19 20:53 97 H 98 19 20:52 96 H 118/61 19 20:48 106 H 97 19 20:43 104 H 98 19 20:38 89 97 1719 20:36 100 H 118/64 1719 20:33 93 H 98 19 20:28 95 H 97 19 20:23 97 H 98 1719 20:21 94 H 129/82 17/19 20:20 104 H 126/77 1719 20:18 96 H 99 17/19 20:13 82 95 17/19 20:08 83 95 17/19 20:06 78 122/65 17/19 20:03 83 95 17/19 19:58 81 96 17/19 19:53 83 95 17/19 19:51 93 H 126/67 17/19 19:48 86 98 17/19 19:43 79 95 17/19 19:38 83 96 17/19 19:37 86 128/72 17/19 19:34 96 H 146/73 H 17/19 19:33 97 H 98 17/19 19:28 97 H 97 17/19 19:23 92 H 97 17/19 19:22 95 H 157/105 H 17/19 19:18 103 H 99 17/19 19:15 37.3 C 92 H 18 97 17/19 19:13 107 H 98 17/19 19:08 88 97 17/19 19:07 88 129/80 17/19 19:03 80 95 17/19 18:58 97 H 98 17/19 18:53 82 96 17/19 18:51 88 131/77 17/19 18:48 95 H 99 17/19 18:43 96 H 98 17/19 18:38 101 H 97 17/19 18:37 97 H 137/88 17/19 18:33 97 H 96 17/19 18:29 108 H 84 L 17/19 18:28 108 H 90 17/19 18:23 107 H 95 17/19 18:22 98 H 148/85 H 17/19 18:18 109 H 98 17/19 18:16 116 H 88 L 17/19 18:13 107 H 97 1719 18:08 92 H 97 17/19 18:07 90 121/70 17/19 18:04 89 122/71 17/19 18:03 98 H 123/73 97 17/19 17:58 100 H 97 17/19 17:53 80 98 17/19 17:52 93 H 121/78 17/19 17:48 95 H 98 17/19 17:43 97 H 97 17/19 17:38 103 H 98 17/19 17:36 99 H 125/66 17/19 17:33 91 H 97 17/19 17:31 88 126/64 17/19 17:28 93 H 99 17/19 17:23 83 96 17/19 17:18 81 96 17/19 17:13 93 H 97 1719 17:08 104 H 99 1719 17:07 93 H 128/65 17/19 17:03 88 96 17/19 16:58 100 H 98 17/19 16:53 92 H 98 17/19 16:52 94 H 128/70 17/19 16:48 112 H 95 17/19 16:43 91 H 97 17/19 16:38 82 96 1719 16:36 78 117/60 17/19 16:33 80 96 17/19 16:28 84 96 17/19 16:23 88 96 1719 16:21 96 H 118/59 L 17 16:18 84 95 1719 16:13 85 97 1719 16:08 93 H 96 19 16:06 81 127/66 17/19 16:03 81 96 1719 15:58 81 96 1719 15:55 16 19 15:53 85 96 17/19 15:51 80 122/63 17/19 15:48 85 97 17/19 15:43 92 H 98 17/19 15:38 88 98 17/19 15:36 95 H 119/55 L 1719 15:33 91 H 98 1719 15:28 90 97 17/19 15:23 94 H 98 17/19 15:22 88 122/73 17/19 15:18 104 H 98 17/19 15:13 100 H 98 17/19 15:08 96 H 147/85 H 98 17/19 15:03 94 H 97 17/19 15:00 37.2 C 18 07/25/19 14:58 100 H 97 17/19 14:53 98 H 96 17/19 14:50 20 17/19 14:48 96 H 96 17/19 14:43 88 96 17/19 14:38 92 H 97 17/19 14:36 91 H 141/77 H 17/19 14:33 104 H 96 17/19 14:28 90 96 07/25/19 14:23 90 96 07/25/19 14:21 90 131/79 07/25/19 14:18 110 H 98 07/25/19 14:13 87 96 07/25/19 14:08 91 H 96 07/25/19 14:06 93 H 129/74 07/25/19 14:03 89 97 07/25/19 13:58 101 H 97 07/25/19 13:53 98 H 96 07/25/19 13:52 96 H 129/79 07/25/19 13:48 101 H 97 07/25/19 13:42 105 H 94 07/25/19 13:38 18 07/25/19 13:37 103 H 94 07/25/19 13:36 102 H 122/69 07/25/19 13:32 101 H 94 07/25/19 13:27 102 H 93 07/25/19 13:22 112 H 94 07/25/19 13:21 103 H 125/68 07/25/19 13:17 105 H 94 07/25/19 13:12 108 H 94 07/25/19 13:07 101 H 128/74 93 07/25/19 13:02 106 H 94 07/25/19 13:00 20 07/25/19 12:57 109 H 94 07/25/19 12:52 108 H 129/86 95 07/25/19 12:47 104 H 94 07/25/19 12:42 104 H 94 07/25/19 12:37 99 H 94 07/25/19 12:36 94 H 134/77 07/25/19 12:32 89 94 07/25/19 12:27 95 H 93 07/25/19 12:22 95 H 92 07/25/19 12:21 99 H 125/69 07/25/19 12:17 94 H 93 07/25/19 12:12 100 H 94 07/25/19 12:10 37.3 C 20
[2019-07-26] MEDS ORDERED: LACTATED RINGER'S 1,000 ML IV SCH ×3 (00:15→20:36)
[2019-07-26 00:37] LABS: Basophils # (auto) 0.02 K/uL (0-0.2); Basophils % (auto) 0.2 %; Eosinophils # (auto) 0.06 K/uL (0-0.5); Eosinophils % (auto) 0.5 %; Hematocrit (blood only) 35.6 % (37-47); Hemoglobin 11.8 g/dL (12.0-16.0); Immature Granulocytes # (auto) 0.13 K/uL (0.00-0.02); Lymphocytes % (auto) 11.2 %; Mean Corpuscular Volume 87.5 fL (80-100); Mean Platelet Volume 11.6 fL (7.4-10.4); Monocytes # (auto) 1.31 K/uL (0.11-0.59); Monocytes % (auto) 10.5 %; Neutrophils # (auto) 9.58 K/uL (1.4-6.5); Neutrophils % (auto) 76.6 %; Platelet Count 160 K/uL (130-400); RDW Standard Deviation 47.1 fL (36.4-46.3); Red Blood Count 4.07 M/uL (4.2-5.4)
[2019-07-26 00:38] LABS: Mean Corpuscular Hgb Conc 33.1 g/dL (32-36)
--- NOTE | 2019-07-26 00:46 | Anesthesiology Progress Note ---
Date of Service July 26, 2019 Subjective Failure to progress, cessarian section called by OB. Epidural now working well since bolus/dose change. FHT reassuring, maternal VSS. Will plan to use epidural for C section + intrathecal morphine for post op pain control. ASA2E Plan: Epidural anesthesia Physical Exam Vital Signs: Last Vital Signs Temp 37.0 C 07/25/19 23:00 Pulse 98 H 07/26/19 00:13 Resp 20 07/26/19 00:00 BP 138/80 07/26/19 00:06 Pulse Ox 97 07/26/19 00:13 Results & Data Medications Administered Lactated Ringer's (Lr) 1,000 mls @ 125 mls/hr IV .Q8H PRN; Protocol PRN Reason: L&D Protocol Stop: 07/26/19 08:54 Last Infusion: 07/25/19 18:45 Dose: 125 mls/hr Documented by: [id number] Infusion: 07/25/19 17:40 Dose: 0 mls/hr Documented by: [id number] Admin: 07/25/19 16:12 Dose: 125 mls/hr Documented by: [id number] Infusion: 07/25/19 14:37 Dose: 125 mls/hr Documented by: [id number] Admin: 07/25/19 06:37 Dose: 125 mls/hr Documented by: [id number] Infusion: 07/25/19 06:29 Dose: 999 mls/hr Documented by: [id number] Infusion: 07/25/19 06:10 Dose: 999 mls/hr Documented by: [id number] Infusion: 07/25/19 04:35 Dose: 125 mls/hr Documented by: [id number] Admin: 07/25/19 04:05 Dose: 999 mls/hr Documented by: [id number] Penicillin G Potassium 3 mu/ (Dextrose) 106 mls @ 100 mls/hr IV Q4H PRN PRN Reason: Give until delivery Stop: 08/03/19 08:54 Last Infusion: 07/25/19 22:45 Dose: 0 mls/hr Documented by: [id number] Admin: 07/25/19 21:40 Dose: 100 mls/hr Documented by: [id number] Infusion: 07/25/19 18:45 Dose: 0 mls/hr Documented by: [id number] Admin: 07/25/19 17:40 Dose: 100 mls/hr Documented by: [id number] Oxytocin (Pitocin) 30 units in 500 mls @ 4 mls/hr IV .Q24H PRN; Protocol PRN Reason: Labor Induction/Augmentation Stop: 07/27/19 12:49 Last Titration: 07/26/19 00:06 Dose: 0 units/hr, 0 mls/hr Documented by: [id number] Titration: 07/26/19 00:05 Dose: 0 units/hr, 0 mls/hr Documented by: [id number] Titration: 07/25/19 23:44 Dose: 0.24 units/hr, 4 mls/hr Documented by: [id number] Titration: 07/25/19 23:00 Dose: 0.12 units/hr, 2 mls/hr Documented by: [id number] Titration: 07/25/19 20:15 Dose: 0 units/hr, 0 mls/hr Documented by: [id number] Titration: 07/25/19 18:45 Dose: 1.08 units/hr, 18 mls/hr Documented by: [id number] Titration: 07/25/19 18:10 Dose: 0.96 units/hr, 16 mls/hr Documented by: [id number] Titration: 07/25/19 16:40 Dose: 0.84 units/hr, 14 mls/hr Documented by: [id number] Titration: 07/25/19 16:05 Dose: 0.72 units/hr, 12 mls/hr Documented by: [id number] Titration: 07/25/19 15:25 Dose: 0.6 units/hr, 10 mls/hr Documented by: [id number] Titration: 07/25/19 14:50 Dose: 0.48 units/hr, 8 mls/hr Documented by: [id number] Titration: 07/25/19 14:11 Dose: 0.36 units/hr, 6 mls/hr Documented by: [id number] Titration: 07/25/19 13:38 Dose: 0.24 units/hr, 4 mls/hr Documented by: [id number] Admin: 07/25/19 13:08 Dose: 0.12 units/hr, 2 mls/hr Documented by: [id number] Cosigned by: [id number] Misoprostol (Cytotec) 50 mcg PO ONCE JALEN Stop: 08/24/19 07:44 Last Admin: 07/25/19 08:07 Dose: 50 mcg Documented by: [id number] Ropivacaine (Epidural (L&D)) 100 ml EPI PRN PRN; Protocol PRN Reason: Pain R/T Labor Stop: 07/26/19 18:03 Last Admin: 07/25/19 23:42 Dose: 100 ml Documented by: [id number] Cosigned by: [id number] Admin: 07/25/19 19:12 Dose: 100 ml Documented by: [id number] Cosigned by: [id number]
[2019-07-26] MEDS ORDERED: CITRIC ACID/SODIUM CITRATE 15 ML UDC PO ONE (01:00)
[2019-07-26] MEDS ORDERED: CEFAZOLIN 2000MG 2,000 MG/15 ML SYR IV ONE (01:00)
[2019-07-26] MEDS ORDERED: LIDOCAINE/EPINEPHRINE 2% 1:200,000 20 ML SDV ONE (01:00)
[2019-07-26] MEDS ORDERED: OXYTOCIN 10 UNITS/ML VIAL ONE (01:07)
[2019-07-26] MEDS ORDERED: fentaNYL citrate 100 MCG/2 ML VIAL ONE (01:19)
[2019-07-26] MEDS ORDERED: MoRPHine SULFATE PF 1 MG/ML 10 ML AMP/VIAL ONE (01:30)
[2019-07-26] MEDS ORDERED: KETOROLAC 30 MG/ML VIAL ONE (01:35)
[2019-07-26] MEDS ORDERED: SUPERCREAM 0.870% 15 GM JAR EXT PRN (02:34)
[2019-07-26] MEDS ORDERED: MAGNESIUM HYDROXIDE SUSP 30 ML UDC PO PRN (02:34)
[2019-07-26] MEDS ORDERED: HYDROCORTISONE ACETATE 25 MG SUPP PR PRN (02:34)
[2019-07-26] MEDS ORDERED: DIPHTHERIA/TETANUS/PERTUSSIS 0.5 ML SYR/VIAL IM ONE (02:34)
[2019-07-26] MEDS ORDERED: BENZOCAINE 20% AER SPR 82.5 GM CAN EXT PRN (02:34)
[2019-07-26] MEDS ORDERED: SENNA 8.6 MG TAB PO PRN (02:34)
[2019-07-26] MEDS ORDERED: MoRPHine SULFATE 2 MG/ML CARP IV PRN (02:36)
[2019-07-26] MEDS ORDERED: NALBUPHINE HCL INJ 10 MG/ML AMP IV PRN (02:36)
[2019-07-26] MEDS ORDERED: ePHEDrine sulfate 50 MG/ML AMP IV PRN (02:36)
[2019-07-26] MEDS ORDERED: MoRPHine SULFATE PF 1 MG/ML 10 ML AMP/VIAL INT SPINAL ONE (02:36)
[2019-07-26] MEDS ORDERED: ONDANSETRON INJ 2 MG/ML 2 ML VIAL IV PRN ×2 (02:36→20:36)
[2019-07-26] MEDS ORDERED: NALOXONE HCL 1 MG in SODIUM CHLORIDE 0.9% 1000ML 1,000 ML IV PRN (02:36)
[2019-07-26] MEDS ORDERED: HYDROmorphone INJ 0.5 MG/0.5 ML SYR IV PRN (02:36)
[2019-07-26] MEDS ORDERED: PROMETHAZINE HCL 6.25 MG in SODIUM CHLORIDE 0.9% 50 ML IV PRN (02:36)
[2019-07-26] MEDS ORDERED: NALOXONE HCL 0.08 MG in SYRINGE 1.8 ML IV PRN (02:36)
[2019-07-26] MEDS ORDERED: DiphenhydrAMINE HCL 50 MG/ML VIAL IV PRN ×2 (02:36→20:36)
[2019-07-26] MEDS ORDERED: NALOXONE HCL 0.4 MG/1 ML VIAL/CARP IV PRN (02:36)
[2019-07-26] MEDS ORDERED: LACTATED RINGER'S 500 ML IV PRN (02:36)
[2019-07-26] MEDS ORDERED: MEPERIDINE HCL 25 MG/ML CARP IV PRN (02:36)
--- NOTE | 2019-07-26 02:38 | Post Operative Brief Note ---
Immediate Post Op Note v1 Date of Surgery July 26, 2019 Pre & Post Diagnosis Operation Date: 07/26/19 00:10 Pre-Op Diagnosis: Failure to progress Post-Op Diagnosis: Failure to progress I identified the patient and participated in the time-out.: Yes Procedure Operation Date: 07/26/19 00:10 Actual Procedures p Section in LD(Bilateral) - Atilio Ly MD Surgeon Atilio Ly MD Progressive Care Manager Shea CASTANEDA Estimated Blood Loss 600 Findings Consistent with Post-Op Diagnosis Drains Perez Catheter
[2019-07-26] MEDS ORDERED: NO NARCOTICS OR SEDATIVES SCH (02:45)
[2019-07-26] MEDS ORDERED: DC INTRASPINAL MORPHINE SCH (02:45)
[2019-07-26] MEDS ORDERED: SODIUM CHLORIDE 0.9% 1000ML 1,000 ML IV SCH (02:45)
--- NOTE | 2019-07-26 03:03 | Anesthesiology Progress Note ---
Date of Service July 26, 2019 Anesthesia Post Procedure Vital Signs Vital Signs: Temp Pulse Resp BP Pulse Ox 07/26/19 03:00 100 H 121/64 07/26/19 02:57 102 H 96 07/26/19 02:53 105 H 125/60 07/26/19 02:52 110 H 96 07/26/19 02:47 101 H 99 07/26/19 02:45 99 H 93 07/26/19 02:42 102 H 99 07/26/19 02:41 37.3 C 91 H 18 138/76 07/26/19 02:37 116 H 98 07/26/19 02:32 100 H 98 07/26/19 02:30 96 H 113/59 L 07/26/19 02:27 98 H 99 07/26/19 00:13 98 H 97 07/26/19 00:08 96 H 94 07/26/19 00:06 93 H 138/80 07/26/19 00:03 95 H 96 07/26/19 00:00 20 07/25/19 23:58 82 95 07/25/19 23:53 88 94 07/25/19 23:52 82 123/74 07/25/19 23:48 90 94 07/25/19 23:43 90 93 07/25/19 23:38 97 H 96 07/25/19 23:36 82 129/63 07/25/19 23:33 95 H 94 07/25/19 23:28 91 H 94 07/25/19 23:23 87 94 07/25/19 23:21 89 139/69 07/25/19 23:18 88 94 07/25/19 23:13 94 H 96 07/25/19 23:08 92 H 97 07/25/19 23:06 85 139/71 07/25/19 23:03 99 H 96 07/25/19 23:00 37.0 C 18 07/25/19 22:58 89 97 07/25/19 22:53 88 97 07/25/19 22:51 91 H 133/81 07/25/19 22:48 88 97 07/25/19 22:43 87 97 07/25/19 22:38 91 H 97 07/25/19 22:36 90 135/81 07/25/19 22:33 88 97 10/17/19 22:31 18 07/25/19 22:28 86 98 07/25/19 22:23 87 97 07/25/19 22:21 87 130/82 07/25/19 22:18 94 H 97 07/25/19 22:13 99 H 98 07/25/19 22:08 85 97 07/25/19 22:06 86 117/76 07/25/19 22:03 89 98 07/25/19 22:00 18 07/25/19 21:58 85 98 07/25/19 21:53 85 98 07/25/19 21:51 92 H 121/80 07/25/19 21:48 94 H 97 07/25/19 21:43 90 97 07/25/19 21:38 101 H 98 07/25/19 21:37 94 H 112/57 L 07/25/19 21:33 94 H 97 07/25/19 21:30 20 07/25/19 21:28 90 98 07/25/19 21:23 104 H 97 07/25/19 21:22 88 125/78 07/25/19 21:18 96 H 98 07/25/19 21:15 36.9 C 07/25/19 21:13 92 H 99 07/25/19 21:08 96 H 98 07/25/19 21:07 93 H 116/71 07/25/19 21:03 93 H 98 07/25/19 21:00 18 07/25/19 20:58 93 H 98 07/25/19 20:53 97 H 98 07/25/19 20:52 96 H 118/61 07/25/19 20:48 106 H 97 07/25/19 20:43 104 H 98 19 20:38 89 97 07/25/19 20:36 100 H 118/64 07/25/19 20:33 93 H 98 07/25/19 20:28 95 H 97 07/25/19 20:23 97 H 98 07/25/19 20:21 94 H 129/82 07/25/19 20:20 104 H 126/77 07/25/19 20:18 96 H 99 07/25/19 20:13 82 95 07/25/19 20:08 83 95 07/25/19 20:06 78 122/65 07/25/19 20:03 83 95 10/17/19 19:58 81 96 1017/19 19:53 83 95 17/19 19:51 93 H 126/67 1017/19 19:48 86 98 17/19 19:43 79 95 1017/19 19:38 83 96 17/19 19:37 86 128/72 17/19 19:34 96 H 146/73 H 17/19 19:33 97 H 98 17/19 19:28 97 H 97 17/19 19:23 92 H 97 17/19 19:22 95 H 157/105 H 17/19 19:18 103 H 99 17/19 19:15 37.3 C 92 H 18 97 17/19 19:13 107 H 98 17/19 19:08 88 97 17/19 19:07 88 129/80 17/19 19:03 80 95 17/19 18:58 97 H 98 17/19 18:53 82 96 17/19 18:51 88 131/77 17/19 18:48 95 H 99 17/19 18:43 96 H 98 17/19 18:38 101 H 97 17/19 18:37 97 H 137/88 17/19 18:33 97 H 96 17/19 18:29 108 H 84 L 17/19 18:28 108 H 90 17/19 18:23 107 H 95 17/19 18:22 98 H 148/85 H 17/19 18:18 109 H 98 17/19 18:16 116 H 88 L 17/19 18:13 107 H 97 17/19 18:08 92 H 97 17/19 18:07 90 121/70 17/19 18:04 89 122/71 1017/19 18:03 98 H 123/73 97 17/19 17:58 100 H 97 17/19 17:53 80 98 17/19 17:52 93 H 121/78 1017/19 17:48 95 H 98 17/19 17:43 97 H 97 17/19 17:38 103 H 98 17/19 17:36 99 H 125/66 10/17/19 17:33 91 H 97 17/19 17:31 88 126/64 17/19 17:28 93 H 99 17/19 17:23 83 96 17/19 17:18 81 96 17/19 17:13 93 H 97 1719 17:08 104 H 99 17/19 17:07 93 H 128/65 17/19 17:03 88 96 17/19 16:58 100 H 98 17/19 16:53 92 H 98 1719 16:52 94 H 128/70 17/19 16:48 112 H 95 17/19 16:43 91 H 97 17/19 16:38 82 96 1719 16:36 78 117/60 17/19 16:33 80 96 17/19 16:28 84 96 17/19 16:23 88 96 1719 16:21 96 H 118/59 L 19 16:18 84 95 17/19 16:13 85 97 19 16:08 93 H 96 1719 16:06 81 127/66 07/25/19 16:03 81 96 17/19 15:58 81 96 17/19 15:55 16 19 15:53 85 96 1719 15:51 80 122/63 17/19 15:48 85 97 17/19 15:43 92 H 98 1719 15:38 88 98 1719 15:36 95 H 119/55 L 17/19 15:33 91 H 98 17/19 15:28 90 97 17/19 15:23 94 H 98 17/19 15:22 88 122/73 17/19 15:18 104 H 98 17/19 15:13 100 H 98 17/19 15:08 96 H 147/85 H 98 17/19 15:03 94 H 97 17/19 15:00 37.2 C 18 17/19 14:58 100 H 97 17/19 14:53 98 H 96 17/19 14:50 20 07/25/19 14:48 96 H 96 07/25/19 14:43 88 96 07/25/19 14:38 92 H 97 07/25/19 14:36 91 H 141/77 H 07/25/19 14:33 104 H 96 07/25/19 14:28 90 96 07/25/19 14:23 90 96 07/25/19 14:21 90 131/79 07/25/19 14:18 110 H 98 07/25/19 14:13 87 96 07/25/19 14:08 91 H 96 07/25/19 14:06 93 H 129/74 07/25/19 14:03 89 97 07/25/19 13:58 101 H 97 07/25/19 13:53 98 H 96 07/25/19 13:52 96 H 129/79 07/25/19 13:48 101 H 97 07/25/19 13:42 105 H 94 07/25/19 13:38 18 07/25/19 13:37 103 H 94 07/25/19 13:36 102 H 122/69 07/25/19 13:32 101 H 94 07/25/19 13:27 102 H 93 07/25/19 13:22 112 H 94 07/25/19 13:21 103 H 125/68 07/25/19 13:17 105 H 94 07/25/19 13:12 108 H 94 07/25/19 13:07 101 H 128/74 93 07/25/19 13:02 106 H 94 07/25/19 13:00 20 07/25/19 12:57 109 H 94 07/25/19 12:52 108 H 129/86 95 07/25/19 12:47 104 H 94 07/25/19 12:42 104 H 94 07/25/19 12:37 99 H 94 07/25/19 12:36 94 H 134/77 07/25/19 12:32 89 94 07/25/19 12:27 95 H 93 07/25/19 12:22 95 H 92 07/25/19 12:21 99 H 125/69 07/25/19 12:17 94 H 93 07/25/19 12:12 100 H 94 07/25/19 12:10 37.3 C 20 07/25/19 12:07 111 H 96 07/25/19 12:06 108 H 136/74 07/25/19 12:02 106 H 94 07/25/19 11:57 103 H 95 07/25/19 11:52 98 H 94 07/25/19 11:51 102 H 133/84 07/25/19 11:47 106 H 95 07/25/19 11:42 101 H 96 17 11:37 102 H 95 07/25/19 11:36 95 H 146/80 H 07/25/19 11:32 104 H 96 07/25/19 11:27 106 H 95 07/25/19 11:23 104 H 158/81 H 07/25/19 11:22 104 H 93 07/25/19 11:17 98 H 94 07/25/19 11:12 114 H 95 07/25/19 11:07 103 H 134/60 95 07/25/19 11:02 101 H 94 07/25/19 10:57 96 H 94 07/25/19 10:52 100 H 92 07/25/19 10:51 98 H 118/64 07/25/19 10:47 98 H 93 07/25/19 10:42 98 H 94 07/25/19 10:37 100 H 93 07/25/19 10:36 91 H 112/65 07/25/19 10:32 97 H 93 07/25/19 10:30 16 07/25/19 10:27 99 H 93 07/25/19 10:22 98 H 94 07/25/19 10:21 100 H 128/65 07/25/19 10:17 112 H 94 07/25/19 10:12 99 H 94 07/25/19 10:07 97 H 94 07/25/19 10:06 91 H 120/64 07/25/19 10:02 97 H 93 19 10:00 20 07/25/19 09:57 102 H 94 07/25/19 09:52 100 H 93 07/25/19 09:51 95 H 116/57 L 17/19 09:47 99 H 94 17/19 09:42 99 H 93 17/19 09:37 97 H 122/61 93 17/19 09:32 96 H 94 07/25/19 09:27 97 H 94 07/25/19 09:22 104 H 132/82 95 07/25/19 09:17 95 H 93 07/25/19 09:12 90 92 07/25/19 09:07 90 92 07/25/19 09:06 85 119/59 L 07/25/19 09:02 92 H 92 07/25/19 09:00 18 07/25/19 08:57 91 H 92 07/25/19 08:52 89 93 07/25/19 08:51 90 124/60 07/25/19 08:47 89 94 07/25/19 08:42 90 92 07/25/19 08:37 106 H 130/61 93 07/25/19 08:32 103 H 94 07/25/19 08:27 92 H 92 07/25/19 08:22 100 H 93 07/25/19 08:21 100 H 143/75 H 07/25/19 08:17 101 H 94 07/25/19 08:12 105 H 94 07/25/19 08:07 110 H 95 07/25/19 08:06 115 H 128/73 07/25/19 08:02 104 H 95 07/25/19 07:57 112 H 95 07/25/19 07:52 106 H 95 07/25/19 07:51 106 H 134/68 07/25/19 07:47 112 H 95 07/25/19 07:42 93 H 94 07/25/19 07:37 98 H 94 07/25/19 07:36 104 H 130/69 07/25/19 07:32 98 H 94 07/25/19 07:27 109 H 95 07/25/19 07:22 102 H 94 07/25/19 07:21 110 H 119/65 07/25/19 07:17 109 H 96 07/25/19 07:12 110 H 95 07/25/19 07:07 105 H 126/68 96 07/25/19 07:05 37.3 C 20 07/25/19 07:02 106 H 93 07/25/19 07:00 18 07/25/19 06:57 94 H 94 07/25/19 06:52 95 H 94 07/25/19 06:51 88 123/56 L 07/25/19 06:47 90 93 07/25/19 06:42 94 H 93 07/25/19 06:37 89 94 07/25/19 06:36 100 H 121/57 L 07/25/19 06:32 91 H 94 07/25/19 06:30 16 07/25/19 06:27 92 H 92 07/25/19 06:22 86 124/63 93 07/25/19 06:17 91 H 93 07/25/19 06:15 16 07/25/19 06:12 94 H 93 07/25/19 06:07 109 H 94 07/25/19 06:03 83 121/59 L 88 L 07/25/19 06:02 90 92 07/25/19 06:00 18 07/25/19 05:58 85 117/64 07/25/19 05:57 87 92 07/25/19 05:53 87 119/62 07/25/19 05:52 90 92 07/25/19 05:49 85 121/70 89 L 07/25/19 05:47 89 93 07/25/19 05:45 16 07/25/19 05:43 90 124/70 07/25/19 05:42 88 93 07/25/19 05:38 83 119/69 07/25/19 05:37 89 93 07/25/19 05:34 83 123/72 07/25/19 05:32 91 H 92 07/25/19 05:30 18 07/25/19 05:28 85 122/73 07/25/19 05:27 90 93 07/25/19 05:23 91 H 123/71 07/25/19 05:22 91 H 94 07/25/19 05:18 93 H 121/72 07/25/19 05:17 92 H 94 07/25/19 05:15 16 07/25/19 05:13 106 H 120/72 07/25/19 05:12 95 H 94 07/25/19 05:08 104 H 126/76 07/25/19 05:07 108 H 97 07/25/19 05:06 106 H 123/69 07/25/19 05:04 108 H 119/71 07/25/19 05:02 104 H 126/74 94 07/25/19 05:00 98 H 121/71 07/25/19 04:58 98 H 128/78 07/25/19 04:57 100 H 94 07/25/19 04:52 110 H 95 07/25/19 04:47 109 H 96 07/25/19 04:42 118 H 95 07/25/19 04:34 92 H 93 07/25/19 04:29 90 95 07/25/19 04:24 93 H 92 07/25/19 04:19 100 H 95 07/25/19 04:14 95 H 94 07/25/19 04:09 101 H 94 07/25/19 04:04 90 94 07/25/19 03:59 118 H 97 07/25/19 03:54 107 H 95 07/25/19 03:49 109 H 125/77 96 07/25/19 03:48 37.2 C 18 07/25/19 03:44 92 H 91 07/25/19 03:39 88 92 07/25/19 03:38 93 H 87 L 07/25/19 03:34 91 H 91 07/25/19 03:29 93 H 93 Pain Intensity Bilateral Abdomen: Pain Intensity: 2 Notes Mental Status: alert / awake / arousable Nausea / Vomiting: adequately controlled Pain: adequately controlled Airway Patency, RR, SpO2: stable & adequate BP & HR: stable & adequate Hydration State: stable & adequate Neuraxial Anesthesia: was administered and sensory block is resolving Anesthetic Complications: no major complications apparent and Pt Satisfied with anesthetic care
[2019-07-26] MEDS ORDERED: OXYTOCIN 20 UNITS in LACTATED RINGER'S 1,000 ML IV SCH (03:26)
[2019-07-26] MEDS: OXYTOCIN 20 UNITS in LACTATED RINGER'S 1,000 ML IV PRN ×2 (03:34→12:13)
[2019-07-26] MEDS ORDERED: miSOPROStoL 200 MCG TAB ONE (07:15)
--- NOTE | 2019-07-26 07:42 | Operative Report ---
DATE OF OPERATION: 07/26/2019 INDICATION FOR PROCEDURE: This is a 33-year-old G1, P0 at postdates. The patient was here for induction. She received 2 doses of Cervidil and Cytotec. The patient progressed to 4 cm and heart rate became category 3. Fetus was resuscitated with fluids. The patient was on Pitocin for augmentation. Fetus did not tolerate Pitocin. Fetus began to have tissue category 3 tracing. Pitocin was stopped. Contractions; however went away once Pitocin was stopped. When Pitocin was restarted, fetus continued to show category 3 tracing. This was also large for gestational age fetus. I discussed the above with the patient and she agreed to section. PREOPERATIVE DIAGNOSES: 1. Postdates . 2. intolerance to labor induction. 3. Large for gestational age fetus. POSTOPERATIVE DIAGNOSES: 1. Postdates . 2. intolerance to labor induction. 3. Large for gestational age fetus. PROCEDURE: Primary section. SURGEON: Atilio Ly MD ANESTHESIA: Epidural. ASSISTANTS: TONYA Valdivia. COMPLICATIONS: None. DRAINS: Perez catheter. ESTIMATED BLOOD LOSS: 600 mL. INTRAVENOUS FLUIDS: 800 mL. URINE OUTPUT: 175 mL clear urine at end of procedure. FINDINGS: in cephalic presentation. Weight and Apgars in the pediatric record. Uterus, adnexa appeared grossly normal. The rest of the abdominal exam is unremarkable. COMPLICATIONS: None. DISPOSITION: Stable to recovery room. PATHOLOGY: Placenta. DESCRIPTION OF PROCEDURE: The patient was taken to the operating room where she was prepped and draped in normal sterile fashion. Timeout was called. A Pfannenstiel incision was made and carried down to the fascia. Fascia was incised in the midline. The rectus abdominus muscle was sharply dissected off the fascia. Peritoneum was identified, entered sharply. Once inside the abdomen, the findings were as dictated above. An Chang retractor was placed in the abdomen for retraction. Vesicouterine peritoneum was sharply dissected off the lower segment of the uterus. Transverse incision was made on the lower segment of the uterus. Infant was delivered, mouth was suctioned. Cord was cut and clamped and handed over to the pediatric team. Cord blood was obtained. Placenta was manually removed. Uterus was exteriorized and cleared of all clots and debris. Uterus was closed in 2 layers with Vicryl suture. There was good hemostasis. Copious amount of irrigation was used to irrigate the abdomen and the uterus returned to the abdominal cavity. Vesicouterine peritoneum was reapproximated with plain suture. The Chang retractor was removed and the peritoneum closed in a running fashion with plain suture. The rectus abdominis muscle was loosely approximated with 2 [id number] sutures of plain suture. The fascia is closed in a running fashion with Vicryl stitch. SubQ was reapproximated with plain suture and skin was closed with heber. All instruments were removed from the abdomen and accounted for x2. The patient and are in recovery in stable condition. I attest to the content of the Intraoperative Record and any orders documented therein. Any exception s are noted below.
[2019-07-26] MEDS: PRENATAL VITAMIN 1 TAB PO SCH (08:06)
[2019-07-26] MEDS: DOCUSATE SODIUM 100 MG CAP PO SCH ×2 (08:06→20:42)
[2019-07-26] MEDS: SIMETHICONE 80 MG CHEW PO SCH ×4 (08:06→20:42)
[2019-07-26] MEDS: FERROUS SULFATE 325 MG TAB PO SCH (08:06)
[2019-07-26] MEDS: KETOROLAC 30 MG/ML VIAL IV PRN ×2 (08:07→13:03)
--- NOTE | 2019-07-26 08:25 | Obstetrical Progress Note ---
Date of Service July 26, 2019 Subjective Patient is seen and examined. She feels well, no complaints. Pain is under control Has not been OOB yet No dizziness Tolerating clear diet with out N&V Flatus neg Bleeding is minimal No fever/ chills/ CP/ SOB/ N&V/ Leg pain Breast feeding without problems Vital Signs Temp Pulse Pulse Pulse Resp BP BP 07/26/19 07:52 36.7 C 73 18 07/26/19 06:20 17 07/26/19 05:20 36.8 C 91 H 18 126/74 07/26/19 04:53 84 07/26/19 04:52 86 07/26/19 04:48 93 H 07/26/19 04:47 92 H 07/26/19 04:42 118 H 07/26/19 04:41 101 H 07/26/19 04:37 115 H 07/26/19 04:34 88 07/26/19 04:32 102 H 07/26/19 04:27 100 H 07/26/19 04:22 90 07/26/19 04:21 98 H 130/67 07/26/19 04:17 104 H 07/26/19 04:12 108 H 07/26/19 04:07 91 H 07/26/19 04:05 90 07/26/19 04:02 104 H 07/26/19 04:01 91 H 18 127/73 07/26/19 03:59 98 H 07/26/19 03:57 92 H 07/26/19 03:52 92 H 07/26/19 03:47 101 H 07/26/19 03:44 112 H 07/26/19 03:42 102 H 07/26/19 03:41 96 H 149/65 H 07/26/ 03:39 100 H 07/26/19 03:37 95 H 07/26/19 03:32 92 H 07/26/19 03:31 97 H 150/87 H 07/26/ 03:30 18 07/26/19 03:27 97 H 07/26/ 03:23 107 H 07/26/ 03:22 100 H 07/26/ 03:20 96 H 18 141/63 H 07/26/ 03:17 98 H 07/26/19 03:13 92 H 07/26/19 03:12 90 07/26/19 03:10 37.5 C 93 H 18 129/66 07/26/19 03:07 86 07/26/19 03:02 104 H 07/26/19 03:00 100 H 18 121/64 07/26/19 02:57 102 H 07/26/19 02:53 105 H 18 125/60 07/26/19 02:52 110 H 07/26/19 02:47 101 H 07/26/19 02:45 99 H 07/26/19 02:42 102 H 07/26/19 02:41 37.3 C 91 H 18 138/76 07/26/19 02:37 116 H 07/26/19 02:32 100 H 07/26/19 02:30 96 H 113/59 L 07/26/19 02:27 98 H 07/26/19 00:13 98 H 07/26/19 00:08 96 H 07/26/19 00:06 93 H 138/80 07/26/19 00:03 95 H 07/26/19 00:00 20 07/25/19 23:58 82 07/25/19 23:53 88 07/25/19 23:52 82 123/74 07/25/19 23:48 90 07/25/19 23:43 90 07/25/19 23:38 97 H 07/25/19 23:36 82 129/63 07/25/19 23:33 95 H 07/25/19 23:28 91 H 07/25/19 23:23 87 07/25/19 23:21 89 139/69 07/25/19 23:18 88 07/25/19 23:13 94 H 07/25/19 23:08 92 H 07/25/19 23:06 85 139/71 07/25/19 23:03 99 H 07/25/19 23:00 37.0 C 18 07/25/19 22:58 89 07/25/19 22:53 88 07/25/19 22:51 91 H 133/81 07/25/19 22:48 88 07/25/19 22:43 87 07/25/19 22:38 91 H 07/25/19 22:36 90 135/81 07/25/19 22:33 88 07/25/19 22:31 18 07/25/19 22:28 86 07/25/19 22:23 87 07/25/19 22:21 87 130/82 07/25/19 22:18 94 H 07/25/19 22:13 99 H 07/25/19 22:08 85 07/25/19 22:06 86 117/76 07/25/19 22:03 89 07/25/19 22:00 18 07/25/19 21:58 85 07/25/19 21:53 85 07/25/19 21:51 92 H 121/80 07/25/19 21:48 94 H 07/25/19 21:43 90 07/25/19 21:38 101 H 07/25/19 21:37 94 H 112/57 L 07/25/19 21:33 94 H 07/25/19 21:30 20 07/25/19 21:28 90 07/25/19 21:23 104 H 07/25/19 21:22 88 125/78 07/25/19 21:18 96 H 07/25/19 21:15 36.9 C 07/25/19 21:13 92 H 07/25/19 21:08 96 H 07/25/19 21:07 93 H 116/71 07/25/19 21:03 93 H 07/25/19 21:00 18 07/25/19 20:58 93 H 07/25/19 20:53 97 H 07/25/19 20:52 96 H 118/61 07/25/19 20:48 106 H 07/25/19 20:43 104 H 07/25/19 20:38 89 07/25/19 20:36 100 H 118/64 07/25/19 20:33 93 H 07/25/19 20:28 95 H BP Pulse Ox 07/26/19 07:52 145/85 H 98 07/26/19 06:20 92 07/26/19 05:20 92 07/26/19 04:53 94 07/26/19 04:52 93 07/26/19 04:48 94 07/26/19 04:47 95 07/26/19 04:42 96 07/26/19 04:41 94 07/26/19 04:37 94 07/26/19 04:34 93 07/26/19 04:32 96 07/26/19 04:27 95 07/26/19 04:22 95 07/26/19 04:21 94 07/26/19 04:17 96 07/26/19 04:12 94 07/26/19 04:07 96 07/26/19 04:05 94 07/26/19 04:02 96 07/26/19 04:01 96 07/26/19 03:59 94 07/26/19 03:57 92 07/26/19 03:52 94 07/26/19 03:47 95 07/26/19 03:44 94 07/26/19 03:42 94 07/26/19 03:41 07/26/19 03:39 92 07/26/19 03:37 95 07/26/19 03:32 95 07/26/19 03:31 94 07/26/19 03:30 07/26/19 03:27 96 07/26/19 03:23 94 07/26/19 03:22 95 07/26/19 03:20 07/26/19 03:17 96 07/26/19 03:13 94 07/26/19 03:12 95 07/26/19 03:10 07/26/19 03:07 96 07/26/19 03:02 96 07/26/19 03:00 07/26/19 02:57 96 07/26/19 02:53 07/26/19 02:52 96 07/26/19 02:47 99 07/26/19 02:45 93 07/26/19 02:42 99 07/26/19 02:41 07/26/19 02:37 98 07/26/19 02:32 98 07/26/19 02:30 07/26/19 02:27 99 07/26/19 00:13 97 07/26/19 00:08 94 07/26/19 00:06 07/26/19 00:03 96 07/26/19 00:00 07/25/19 23:58 95 07/25/19 23:53 94 07/25/19 23:52 07/25/19 23:48 94 07/25/19 23:43 93 07/25/19 23:38 96 07/25/19 23:36 07/25/19 23:33 94 07/25/19 23:28 94 07/25/19 23:23 94 07/25/19 23:21 07/25/19 23:18 94 07/25/19 23:13 96 07/25/19 23:08 97 07/25/19 23:06 07/25/19 23:03 96 07/25/19 23:00 07/25/19 22:58 97 07/25/19 22:53 97 07/25/19 22:51 07/25/19 22:48 97 07/25/19 22:43 97 07/25/19 22:38 97 07/25/19 22:36 07/25/19 22:33 97 07/25/19 22:31 07/25/19 22:28 98 07/25/19 22:23 97 07/25/19 22:21 07/25/19 22:18 97 07/25/19 22:13 98 07/25/19 22:08 97 07/25/19 22:06 07/25/19 22:03 98 07/25/19 22:00 07/25/19 21:58 98 07/25/19 21:53 98 07/25/19 21:51 07/25/19 21:48 97 07/25/19 21:43 97 07/25/19 21:38 98 07/25/19 21:37 07/25/19 21:33 97 07/25/19 21:30 07/25/19 21:28 98 07/25/19 21:23 97 07/25/19 21:22 07/25/19 21:18 98 07/25/19 21:15 07/25/19 21:13 99 07/25/19 21:08 98 07/25/19 21:07 07/25/19 21:03 98 07/25/19 21:00 07/25/19 20:58 98 07/25/19 20:53 98 07/25/19 20:52 07/25/19 20:48 97 07/25/19 20:43 98 07/25/19 20:38 97 07/25/19 20:36 07/25/19 20:33 98 07/25/19 20:28 97 Intake & Output 07/25/19 07/26/19 07/26/19 22:59 06:59 14:59 Intake Total 733.000 / 1742.967 2.867 / 1742.967 Output Total 650 / 1850 600 / 1850 Balance 83.000 / -107.033 -597.133 / -107.033 Intake: IV 733.000 / 1742.967 2.867 / 1742.967 Lr 1,000 ml @ 125 mls/hr IV . 183.333 / 1183.333 Q8H PRN Rx#:[id number] PITOCIN 30 units In 500 ml @ 0. 75.667 / 85.634 2.867 / 85.634 24 UNITS/HR 4 mls/hr IV .Q24H PRN Rx#:[id number] Pfizerpen 3 Mu In D5 100 ml @ 212 / 212 100 mls/hr IV Q4H PRN Rx#: [id number] Output: Urine Amount (Catheter) 650 / 1850 600 / 1850 Perez/Indwelling 650 / 1850 600 / 1850 PE: General: Alert, orientedx3, NAD CVS: S1S2 RRR Lungs; CTAB Abd: soft, NT, ND, BS+, fundus firm, below Umbilicus Dressing Clean, dry, intact Perineum intact, Lochia rubra minimal Ext; NT, no edema, SCD's on AP: 33 yo s/p C Section, pod# 0 VSS Afebrile doing well Continue routine postop care Encourage ambulation, PO intake All questions were answered Results & Data Vital Signs (Past 12 Hours) Vital Signs Temp Pulse Pulse Pulse Resp BP BP 07/26/19 07:52 36.7 C 73 18 07/26/19 06:20 17 07/26/19 05:20 36.8 C 91 H 18 126/74 07/26/19 04:53 84 07/26/19 04:52 86 07/26/19 04:48 93 H 07/26/19 04:47 92 H 07/26/19 04:42 118 H 07/26/19 04:41 101 H 07/26/19 04:37 115 H 07/26/19 04:34 88 07/26/19 04:32 102 H 07/26/19 04:27 100 H 07/26/19 04:22 90 07/26/19 04:21 98 H 130/67 07/26/19 04:17 104 H 07/26/19 04:12 108 H 1018/19 04:07 91 H 1018/19 04:05 90 18/ 04:02 104 H 18/19 04:01 91 H 18 127/73 18/ 03:59 98 H 18/19 03:57 92 H 18/ 03:52 92 H 18/ 03:47 101 H 18/19 03:44 112 H 18/ 03:42 102 H 18/ 03:41 96 H 149/65 H 18/19 03:39 100 H 18/ 03:37 95 H 18/ 03:32 92 H 18/ 03:31 97 H 150/87 H 18/ 03:30 18 07/26/19 03:27 97 H 18/ 03:23 107 H 07/26/ 03:22 100 H 07/26/ 03:20 96 H 18 141/63 H 07/26/19 03:17 98 H 07/26/19 03:13 92 H 07/26/ 03:12 90 07/26/19 03:10 37.5 C 93 H 18 129/66 18/19 03:07 86 07/26/19 03:02 104 H 07/26/19 03:00 100 H 18 121/64 07/26/19 02:57 102 H 18/ 02:53 105 H 18 125/60 07/26/19 02:52 110 H 18/ 02:47 101 H 07/26/19 02:45 99 H 07/26/19 02:42 102 H 18/ 02:41 37.3 C 91 H 18 138/76 07/26/19 02:37 116 H 18/19 02:32 100 H 18/19 02:30 96 H 113/59 L 18/ 02:27 98 H 18/ 00:13 98 H 18/19 00:08 96 H 18/19 00:06 93 H 138/80 1018/ 00:03 95 H 18 00:00 20 07/25/19 23:58 82 07/25/19 23:53 88 07/25/19 23:52 82 123/74 07/25/19 23:48 90 07/25/19 23:43 90 07/25/19 23:38 97 H 07/25/19 23:36 82 129/63 07/25/19 23:33 95 H 07/25/19 23:28 91 H 07/25/19 23:23 87 07/25/19 23:21 89 139/69 07/25/19 23:18 88 07/25/19 23:13 94 H 07/25/19 23:08 92 H 07/25/19 23:06 85 139/71 07/25/19 23:03 99 H 07/25/19 23:00 37.0 C 18 07/25/19 22:58 89 07/25/19 22:53 88 07/25/19 22:51 91 H 133/81 07/25/19 22:48 88 07/25/19 22:43 87 07/25/19 22:38 91 H 07/25/19 22:36 90 135/81 07/25/19 22:33 88 07/25/19 22:31 18 07/25/19 22:28 86 07/25/19 22:23 87 07/25/19 22:21 87 130/82 07/25/19 22:18 94 H 07/25/19 22:13 99 H 07/25/19 22:08 85 07/25/19 22:06 86 117/76 07/25/19 22:03 89 07/25/19 22:00 18 07/25/19 21:58 85 07/25/19 21:53 85 07/25/19 21:51 92 H 121/80 07/25/19 21:48 94 H 07/25/19 21:43 90 07/25/19 21:38 101 H 07/25/19 21:37 94 H 112/57 L 07/25/19 21:33 94 H 07/25/19 21:30 20 07/25/19 21:28 90 07/25/19 21:23 104 H 07/25/19 21:22 88 125/78 07/25/19 21:18 96 H 07/25/19 21:15 36.9 C 07/25/19 21:13 92 H 07/25/19 21:08 96 H 07/25/19 21:07 93 H 116/71 07/25/19 21:03 93 H 07/25/19 21:00 18 07/25/19 20:58 93 H 07/25/19 20:53 97 H 07/25/19 20:52 96 H 118/61 19 20:48 106 H 07/25/19 20:43 104 H 07/25/19 20:38 89 07/25/19 20:36 100 H 118/64 07/25/19 20:33 93 H 07/25/19 20:28 95 H 17 20:23 97 H BP Pulse Ox 07/26/19 07:52 145/85 H 98 07/26/19 06:20 92 07/26/19 05:20 92 07/26/19 04:53 94 07/26/19 04:52 93 07/26/19 04:48 94 07/26/19 04:47 95 07/26/19 04:42 96 07/26/19 04:41 94 07/26/19 04:37 94 07/26/19 04:34 93 07/26/19 04:32 96 07/26/19 04:27 95 07/26/19 04:22 95 07/26/19 04:21 94 07/26/19 04:17 96 07/26/19 04:12 94 07/26/19 04:07 96 07/26/19 04:05 94 07/26/19 04:02 96 07/26/19 04:01 96 07/26/19 03:59 94 07/26/19 03:57 92 07/26/19 03:52 94 07/26/19 03:47 95 18 03:44 94 07/26/19 03:42 94 07/26/19 03:41 07/26/19 03:39 92 07/26/19 03:37 95 18 03:32 95 18 03:31 94 18 03:30 18/19 03:27 96 18/ 03:23 94 18 03:22 95 18 03:20 18 03:17 96 07/26/19 03:13 94 07/26/19 03:12 95 07/26/19 03:10 07/26/19 03:07 96 07/26/19 03:02 96 07/26/19 03:00 07/26/19 02:57 96 07/26/19 02:53 07/26/19 02:52 96 07/26/19 02:47 99 07/26/19 02:45 93 07/26/19 02:42 99 07/26/19 02:41 07/26/19 02:37 98 07/26/19 02:32 98 07/26/19 02:30 07/26/19 02:27 99 07/26/19 00:13 97 07/26/19 00:08 94 07/26/19 00:06 07/26/19 00:03 96 07/26/19 00:00 07/25/19 23:58 95 07/25/19 23:53 94 07/25/19 23:52 07/25/19 23:48 94 07/25/19 23:43 93 07/25/19 23:38 96 07/25/19 23:36 07/25/19 23:33 94 07/25/19 23:28 94 07/25/19 23:23 94 07/25/19 23:21 07/25/19 23:18 94 07/25/19 23:13 96 07/25/19 23:08 97 07/25/19 23:06 07/25/19 23:03 96 07/25/19 23:00 07/25/19 22:58 97 07/25/19 22:53 97 07/25/19 22:51 07/25/19 22:48 97 07/25/19 22:43 97 07/25/19 22:38 97 07/25/19 22:36 07/25/19 22:33 97 07/25/19 22:31 07/25/19 22:28 98 07/25/19 22:23 97 07/25/19 22:21 07/25/19 22:18 97 07/25/19 22:13 98 07/25/19 22:08 97 07/25/19 22:06 07/25/19 22:03 98 07/25/19 22:00 07/25/19 21:58 98 07/25/19 21:53 98 07/25/19 21:51 07/25/19 21:48 97 07/25/19 21:43 97 07/25/19 21:38 98 07/25/19 21:37 07/25/19 21:33 97 07/25/19 21:30 07/25/19 21:28 98 07/25/19 21:23 97 07/25/19 21:22 07/25/19 21:18 98 07/25/19 21:15 07/25/19 21:13 99 07/25/19 21:08 98 07/25/19 21:07 07/25/19 21:03 98 07/25/19 21:00 07/25/19 20:58 98 07/25/19 20:53 98 07/25/19 20:52 07/25/19 20:48 97 07/25/19 20:43 98 07/25/19 20:38 97 07/25/19 20:36 07/25/19 20:33 98 07/25/19 20:28 97 07/25/19 20:23 98
[2019-07-26] MEDS ORDERED: PROMETHAZINE HCL 25 MG in SODIUM CHLORIDE 0.9% 50 ML IV PRN (20:36)
[2019-07-26] MEDS ORDERED: ZOLPIDEM TARTRATE 5 MG TAB PO PRN (20:36)
[2019-07-26] MEDS: IBUPROFEN 600 MG TAB PO PRN (21:41)
[2019-07-26] MEDS: OXYCODONE/ACETAMINOPHEN 5mg/325mg TAB PO PRN (21:42)
[2019-07-27] MEDS: OXYCODONE/ACETAMINOPHEN 5mg/325mg TAB PO PRN ×4 (04:36→20:35)
[2019-07-27] MEDS: IBUPROFEN 600 MG TAB PO PRN ×4 (04:36→20:35)
[2019-07-27 06:51] LABS: Basophils # (auto) 0.02 K/uL (0-0.2); Basophils % (auto) 0.2 %; Eosinophils # (auto) 0.11 K/uL (0-0.5); Hemoglobin 9.5 g/dL (12.0-16.0); Immature Granulocytes # (auto) 0.13 K/uL (0.00-0.02); Immature Granulocytes % (auto) 1.1 %; Lymphocytes # (auto) 1.06 K/uL (1.2-3.4); Lymphocytes % (auto) 9.3 %; Mean Corpuscular Hemoglobin 28.9 pg (25-34); Mean Corpuscular Hgb Conc 32.8 g/dL (32-36); Mean Corpuscular Volume 88.1 fL (80-100); Mean Platelet Volume 11.4 fL (7.4-10.4); Monocytes # (auto) 1.36 K/uL (0.11-0.59); Neutrophils # (auto) 8.66 K/uL (1.4-6.5); Neutrophils % (auto) 76.4 %; Platelet Count 117 K/uL (130-400); RDW Coefficient of Variation 15.5 % (11.5-14.5); RDW Standard Deviation 49.8 fL (36.4-46.3); Red Blood Count 3.29 M/uL (4.2-5.4); White Blood Count 11.34 K/uL (4.8-10.8)
[2019-07-27] MEDS: FERROUS SULFATE 325 MG TAB PO SCH (08:50)
[2019-07-27] MEDS: DOCUSATE SODIUM 100 MG CAP PO SCH ×2 (08:51→20:34)
[2019-07-27] MEDS: PRENATAL VITAMIN 1 TAB PO SCH (08:51)
[2019-07-27] MEDS: SIMETHICONE 80 MG CHEW PO SCH ×4 (08:52→20:35)
--- NOTE | 2019-07-27 09:34 | Obstetrical Progress Note ---
Date of Service July 27, 2019 Physical Exam Physical Exam: abdomen soft and non tender bandage removed incision is clean and dry hgb 9.5 vaginal bleeding scant ambulating well no calf tenderness Results & Data Vital Signs (Past 12 Hours) Vital Signs Temp Pulse Resp BP Pulse Ox 07/27/19 08:00 36.4 C L 89 18 131/87 98 07/26/19 23:40 36.6 C 96 H 20 113/76 96
[2019-07-27] MEDS ORDERED: bisacodyL 5 MG TABEC PO SCH (20:00)
[2019-07-28] MEDS ORDERED: bisacodyL 10 MG SUPP PR PRN (02:34)
[2019-07-28] MEDS: IBUPROFEN 600 MG TAB PO PRN ×3 (02:37→14:40)
[2019-07-28] MEDS: OXYCODONE/ACETAMINOPHEN 5mg/325mg TAB PO PRN ×3 (02:37→14:40)
[2019-07-28 06:40] LABS: Hematocrit (blood only) 27.2 % (37-47)
[2019-07-28] MEDS: DOCUSATE SODIUM 100 MG CAP PO SCH (08:50)
[2019-07-28] MEDS: SIMETHICONE 80 MG CHEW PO SCH ×2 (08:50→14:40)
[2019-07-28] MEDS: PRENATAL VITAMIN 1 TAB PO SCH (08:50)
[2019-07-28] MEDS: FERROUS SULFATE 325 MG TAB PO SCH (08:50)
--- NOTE | 2019-07-28 12:29 | Obstetrical Progress Note ---
Date of Service July 28, 2019 Physical Exam Physical Exam: abdomen soft and non tender incision is clean and dry passing flatus vaginal bleeding scant hgb 9.0 no calf tenderness ambulating well Results & Data Vital Signs (Past 12 Hours) Vital Signs Temp Pulse Resp BP Pulse Ox 07/28/19 07:22 36.5 C 79 16 128/85 98
--- NOTE | 2019-07-28 23:22 | Discharge Summary ---
Mrs. Schmid was brought in for induction of labor being over her due date. She eventually had to undergo low segment section for cephalopelvic disproportion, failure to progress. Postoperatively, she did very well. Her preoperative hemoglobin was 11.8. Postoperatively, it was 9.0. She remained afebrile throughout her postoperative stay. She did have prophylactic antibiotics. At the time of discharge, she was ambulating well, eating well, passing flatus and pain was well controlled with a combination of Percocet and Motrin. She was given the usual instructions to call if she had a temperature over 100 or any heavy bleeding and to get in contact with her [facility] physician. She was also given a prescription for Percocet for pain control.
== END 2019-07-28 15:10 | disposition home or self-care (01) | DRG 788 ==
LOC: 4S1 07:27 → 4S2 07-26 05:47

== ENCOUNTER 2023-01-10 05:38 | Inpatient (IN) ==
--- NOTE | 2023-01-02 16:32 | Anesthesiology Consultation ---
Date of Service January 02, 2023 Assessment & Plan (1) Encounter for pre-operative examination: Chart Review Chart Review: entry level paralegal initiated -COVID screening: Per PAT nursing assessment on 01/02/23. No known COVID-19 posi tive contacts or current COVID-19 related symptoms. Travel screen negative. Patient vaccinated for Covid. At surgeon discretion if preop Covid testing being done. Primary 07/26/19= Epidural dosed. (Epidural placed 07/25/19 at L3-L4 with 1 attempt) History Surgery Operation Date: 01/10/23 07:30 Proposed Procedures p Repeat Section - Chloé Gusman MD Height/Weight Height: 5 ft 1 in Weight: 102.058 kg Allergies Allergy/AdvReac Type Severity Reaction Status Date / Time pecan nut Allergy Severe HIVES-SWELL Verified 01/02/23 15:08 ING pollen extracts Allergy Intermediate SNEEZING, Verified 01/02/23 15:08 RUNNY NOSE, ITCHY EYES. Medications Home Medications Medication Instructions Recorded Confirmed Last Taken vit no.95-ferrous 1 tab PO QPM 04/19/19 01/02/23 07/23/19 21:00 fumarate 28 mg-folic acid 800 mcg tablet () Past Medical History Medical History No significant past medical history Past Surgical History Surgical History History of tonsillectomy Hx of section Social History Smoking Status: Never smoker Do You Dip or Chew Tobacco: No Hx Alcohol Use: Yes alcohol intake frequency: holidays/special occasions only Alcohol Intake Frequency Comment: NOT WHILE Hx Substance Use: Yes substance use type: former substance user and marijuana Last Used Substance Other:: YEARS AGO Testing Laboratory Results 12/09/22= WBC: 10.51 H/H: 11.8/39.1 PLATELETS: 173 CREATININE: 0.6 TSH: 2.74
[2023-01-10] MEDS ORDERED: CITRIC ACID/SODIUM CITRATE 15 ML UDC PO SCH (06:00)
[2023-01-10 06:34] LABS: Basophils # (auto) 0.04 K/uL (0-0.2); Basophils % (auto) 0.5 %; Eosinophils % (auto) 1.2 %; Hematocrit (blood only) 35.3 % (37.0-47.0); Hemoglobin 11.7 g/dl (12.0-16.0); Immature Granulocytes # (auto) 0.25 K/uL (0.01-0.20); Lymphocytes # (auto) 1.57 K/uL (1.2-3.4); Lymphocytes % (auto) 18.9 %; Mean Corpuscular Hemoglobin 29.2 pg (25.0-34.0); Mean Corpuscular Hgb Conc 33.1 g/dL (32.0-36.0); Mean Platelet Volume 11.5 fL (9.4-12.4); Monocytes # (auto) 0.94 K/uL (0.11-0.59); Monocytes % (auto) 11.3 %; Neutrophils # (auto) 5.42 K/uL (1.40-6.50); Neutrophils % (auto) 65.1 %; Platelet Count 163 K/uL (130-400); RDW Coefficient of Variation 14.1 % (11.5-14.5); Red Blood Count 4.01 M/uL (4.20-5.40); White Blood Count 8.32 K/ul (4.8-10.8)
[2023-01-10] MEDS ORDERED: fentaNYL citrate PF 100 MCG/2 ML VIAL ONE (06:46)
[2023-01-10] MEDS ORDERED: OXYTOCIN 10 UNITS/ML 10ML VIAL ONE (06:46)
[2023-01-10] MEDS ORDERED: MoRPHine SULFATE PF 1 MG/ML 10 ML AMP/VIAL ONE (06:46)
[2023-01-10] MEDS ORDERED: NALBUPHINE HCL INJ 10 MG/ML AMP IV PRN (06:58)
[2023-01-10] MEDS ORDERED: NALOXONE HCL 0.08 MG in SYRINGE 1.8 ML IV PRN (06:58)
[2023-01-10] MEDS ORDERED: ePHEDrine sulfate 50 MG/ML AMP IV PRN (06:58)
[2023-01-10] MEDS ORDERED: NALOXONE HCL 1 MG in SODIUM CHLORIDE 0.9% 1000ML 1,000 ML IV PRN (06:58)
[2023-01-10] MEDS ORDERED: MoRPHine SULFATE 2 MG/ML CARP IV PRN (06:58)
[2023-01-10] MEDS ORDERED: NALOXONE HCL 0.4 MG/1 ML VIAL/CARP IV PRN (06:58)
[2023-01-10] MEDS ORDERED: MoRPHine SULFATE PF 1 MG/ML 10 ML AMP/VIAL INT SPINAL ONE (06:58)
[2023-01-10] MEDS ORDERED: LACTATED RINGER'S 500 ML IV PRN (06:58)
[2023-01-10] MEDS ORDERED: ONDANSETRON INJ 2 MG/ML 2 ML VIAL IV PRN (06:58)
[2023-01-10] MEDS ORDERED: diphenhydrAMINE 50 MG/ML VIAL IV PRN (06:58)
[2023-01-10] MEDS ORDERED: NO NARCOTICS OR SEDATIVES SCH (07:00)
[2023-01-10] MEDS ORDERED: DC INTRASPINAL MORPHINE SCH (07:00)
[2023-01-10] MEDS ORDERED: SODIUM CHLORIDE 0.9% 1000ML 1,000 ML IV SCH (07:00)
[2023-01-10] MEDS ORDERED: LACTATED RINGER'S 1,000 ML IV SCH (07:30)
--- NOTE | 2023-01-10 07:34 | History & Physical Bridge Note ---
Date of Service January 10, 2023 History & Physical Bridge Note I have examined the patient, reviewed the History & Physical and in the interval since the performance of the History & Physical I have noted the following changes of clinical significance: no changes noted
[2023-01-10] MEDS ORDERED: SENNA 8.6 MG TAB PO PRN (09:28)
[2023-01-10] MEDS ORDERED: MAGNESIUM HYDROXIDE SUSP 30 ML UDC PO PRN (09:28)
[2023-01-10] MEDS ORDERED: BENZOCAINE 20% AER SPR 82.5 GM CAN EXT PRN (09:28)
[2023-01-10] MEDS ORDERED: HYDROCORTISONE ACETATE 25 MG SUPP PR PRN (09:28)
[2023-01-10] MEDS ORDERED: DIPHTHERIA/TETANUS/PERTUSSIS 0.5mL SYR/VIAL (Age 7+yrs) IM ONE (09:28)
[2023-01-10] MEDS ORDERED: OXYTOCIN 20 UNITS in LACTATED RINGER'S 1,000 ML IV SCH (09:45)
[2023-01-10] MEDS: LACTATED RINGER'S 1,000 ML IV SCH ×2 (10:19→20:29)
--- NOTE | 2023-01-10 11:23 | Anesthesiology Progress Note ---
Date of Service January 10, 2023 Anesthesia Post Procedure Vital Signs Vital Signs: Temp Pulse Resp BP Pulse Ox 01/10/23 11:00 36.7 C 101 H 18 97 01/10/23 10:00 95 H 20 136/69 97 01/10/23 10:00 36.7 C 20 01/10/23 10:00 20 01/10/23 09:50 20 01/10/23 09:40 20 01/10/23 09:30 20 01/10/23 09:20 20 01/10/23 09:10 36.9 C 20 01/10/23 11:08 99 H 144/74 H 97 01/10/23 11:03 101 H 97 01/10/23 10:58 95 H 136/69 97 01/10/23 10:53 94 H 97 01/10/23 10:48 101 H 133/69 96 01/10/23 10:43 90 97 01/10/23 10:38 97 01/10/23 10:38 86 01/10/23 10:38 89 134/69 01/10/23 10:33 103 H 96 01/10/23 10:28 95 H 137/64 96 01/10/23 10:23 88 96 01/10/23 10:18 96 H 163/82 H 96 01/10/23 10:13 92 H 96 01/10/23 10:08 98 H 124/56 L 97 01/10/23 10:03 99 H 96 01/10/23 09:58 101 H 95 01/10/23 09:53 95 H 97 01/10/23 09:48 93 H 148/73 H 96 01/10/23 09:43 95 H 96 01/10/23 09:38 96 01/10/23 09:38 92 H 01/10/23 09:38 93 H 124/66 01/10/23 09:33 99 H 97 01/10/23 09:28 99 H 97 01/10/23 09:23 105 H 97 01/10/23 09:18 101 H 97 01/10/23 09:13 97 H 98 01/10/23 09:08 107 H 96 01/10/23 09:06 98 H 92 01/10/23 09:03 93 H 97 01/10/23 08:58 95 01/10/23 08:58 98 H 01/10/23 08:58 93 H 122/58 L 93 01/10/23 07:00 20 01/10/23 07:00 36.8 C 20 01/10/23 07:06 96 H 111/65 01/10/23 05:45 100 H 134/76 01/10/23 05:40 36.8 C 18 Transfer of Care Handoff Completed per policy Notes Mental Status: alert / awake / arousable and participated in evaluation Patient Amnestic to Procedure: Yes Nausea / Vomiting: adequately controlled Pain: adequately controlled Airway Patency, RR, SpO2: stable & adequate BP & HR: stable & adequate Hydration State: stable & adequate Neuraxial Anesthesia: was administered and sensory block is resolving Anesthetic Complications: no major complications apparent and Pt Satisfied with anesthetic care
--- NOTE | 2023-01-10 11:26 | Operative Report (OR) ---
DATE OF SURGERY: 01/10/2023. PREOPERATIVE DIAGNOSIS: Term elective repeat section. POSTOPERATIVE DIAGNOSIS: Term elective repeat section. PROCEDURE: Repeat section, low segment transverse. SURGEON: Subhash Youssef MD. PRESS BREAKER: Bety Chaves PA-C. ANESTHESIA: Spinal with Duramorph. COMPLICATIONS: None. FINDINGS: Live male, Apgars 9 and 10, weight 9 pounds. ESTIMATED BLOOD LOSS: 500 mL. TOTAL FLUIDS: 1200 mL. URINE OUTPUT: 100 mL. DRAINS: Perez. CLINICAL HISTORY: The patient is a 37-year-old female, para 1-0-0-1, at 39 weeks and 2 days, admitted for an elective repeat section. The patient was given informed consent including risks, benefits, and alternatives to the procedure. Timeout was called prior to the start of the procedure and antibiotics were given preop. DESCRIPTION OF PROCEDURE: Under satisfactory spinal anesthesia, the patient was prepped and draped in the usual sterile fashion. A low Pfannenstiel incision through a prior scar was then made, carrying the incision down in successive layers into the abdomen without difficulty. Upon entering into the abdominal cavity, the vesicouterine peritoneum was sharply dissected down with Metzenbaum scissors. A low cervical transverse incision over the lower uterine segment was made. The incision was widened in the AP diameter. The infant was then delivered from the vertex presentation with the aid of fundal pressure, delivering a live male in the vertex presentation. The cord was doubly clamped and cut after a 1 minute cord delay. Apgars were 9 and 10, weight was 9 pounds 10 ounces. Cord blood was obtained. Placenta delivered spontaneously and intact. Uterus was exteriorized. Ring forceps were then placed on both angles in the lower uterine margin and another ring to dilate the cervix. The uterus was closed in a double layer closure starting with a 0 Vicryl suture in a continuous interlocking fashion followed by a second layer imbricating with 0 Vicryl suture. Tubes, ovaries bilaterally were found to be within normal limits. The contents of the pelvic cavity were then inspected, no active bleeding was noted. The initial sponge, needle, and instrument count were found to be correct. Uterus was placed back into the normal anatomical position. The fascia was then reapproximated from both ends using 0 Vicryl suture in a continuous fashion. Subcuticular layer was then closed with 3-0 plain suture, followed by subcuticular stitch of 4-0 Monocryl suture. Clear urine was noted from the Perez. Estimated blood loss was 500 mL. Total fluids 1200 mL. NICHOLAS dressing was applied. Final sponge, needle and instrument count were found to be correct. The patient was placed supine on a stretcher and taken to recovery room in stable condition. Attestation: Please note that Bety was scrubbed in to aassist with the surgery including providing retraction, fumdal pressure, exposure and help to close the abdomen. Job ID: [id number] [facility]
--- NOTE | 2023-01-10 11:27 | Post Operative Brief Note ---
Immediate Post Op Note v1 Date of Surgery January 10, 2023 Pre & Post Diagnosis Operation Date: 01/10/23 07:30 Pre-Op Diagnosis: Term;Elective Repeat Caesarean Section Post-Op Diagnosis: Same; Delivery of a live male child at 0810 I identified the patient and participated in the time-out.: Yes Procedure Operation Date: 01/10/23 07:30 Actual Procedures p Repeat Section - Subhash Youssef MD Surgeon Subhash Youssef MD Clinical Research Administrator Bety Chaves PA-C Estimated Blood Loss 500 Findings Consistent with Post-Op Diagnosis live male Apgars 9/10 9lbs. Fluids LR 1200 ml. Specimens placenta Drains Perez Catheter Anesthesia Type Spinal Complications none Disposition Disposition: L&D Overlapping Procedure I was present for: the critical portions of procedure. I was immediately available: during the entire case. Back up surgeon: was not required during procedure.
[2023-01-10] MEDS: KETOROLAC 30 MG/ML VIAL IV PRN ×2 (11:53→18:19)
[2023-01-10] MEDS: SIMETHICONE 80 MG CHEW PO SCH ×3 (18:18→20:29)
[2023-01-10] MEDS: DOCUSATE SODIUM 100 MG CAP PO SCH (20:29)
[2023-01-10] MEDS ORDERED: NON-FORMULARY MEDICATION (Pnv Cmb#95-Ferrous Fumarate-Fa [Prenatal] 28 mg iron- 800 mcg Ta PO SCH (21:00)
[2023-01-11] MEDS: KETOROLAC 30 MG/ML VIAL IV PRN (00:23)
[2023-01-11] MEDS ORDERED: PROMETHAZINE HCL 25 MG in SODIUM CHLORIDE 0.9% 50 ML IV PRN (01:00)
[2023-01-11] MEDS ORDERED: KETOROLAC 30 MG/ML VIAL IV PRN (01:00)
[2023-01-11] MEDS ORDERED: diphenhydrAMINE Capsule 25 MG CAP PO PRN (01:00)
[2023-01-11] MEDS ORDERED: diphenhydrAMINE 50 MG/ML VIAL IV PRN (01:00)
[2023-01-11] MEDS ORDERED: ONDANSETRON INJ 2 MG/ML 2 ML VIAL IV PRN (01:00)
[2023-01-11] MEDS ORDERED: MEPERIDINE HCL 50 MG/ML CARP IV PRN (01:00)
[2023-01-11] MEDS: oxyCODONE/ACETAMINOPHEN 5mg/325mg TAB PO PRN ×5 (01:38→21:46)
[2023-01-11 06:24] LABS: Basophils # (auto) 0.03 K/uL (0-0.2); Basophils % (auto) 0.3 %; Eosinophils # (auto) 0.12 K/uL (0-0.50); Eosinophils % (auto) 1.2 %; Hemoglobin 10.9 g/dl (12.0-16.0); Immature Granulocytes # (auto) 0.09 K/uL (0.01-0.20); Immature Granulocytes % (auto) 0.9 %; Lymphocytes # (auto) 1.06 K/uL (1.2-3.4); Lymphocytes % (auto) 10.7 %; Mean Corpuscular Volume 87.8 fL (80.0-100.0); Monocytes # (auto) 0.96 K/uL (0.11-0.59); Monocytes % (auto) 9.7 %; Neutrophils # (auto) 7.63 K/uL (1.40-6.50); Neutrophils % (auto) 77.2 %; Platelet Count 150 K/uL (130-400); RDW Coefficient of Variation 14.2 % (11.5-14.5); RDW Standard Deviation 45.1 fL (36.4-46.3); Red Blood Count 3.76 M/uL (4.20-5.40); White Blood Count 9.89 K/ul (4.8-10.8)
[2023-01-11] MEDS: IBUPROFEN 600 MG TAB PO PRN ×4 (08:32→21:46)
[2023-01-11] MEDS: DOCUSATE SODIUM 100 MG CAP PO SCH ×2 (08:32→21:45)
[2023-01-11] MEDS: SIMETHICONE 80 MG CHEW PO SCH ×4 (08:32→21:46)
[2023-01-11] MEDS: PRENATAL VITAMIN 1 TAB PO SCH (08:32)
[2023-01-11] MEDS: FERROUS SULFATE 325 MG TAB PO SCH (08:32)
[2023-01-11] MEDS ORDERED: NON-FORMULARY MEDICATION (Ferrous Sulfate [Iron (Ferrous Sulfate)] 325 mg (65 mg iron) Tab PO SCH (09:00)
--- NOTE | 2023-01-11 09:37 | Obstetrical Progress Note ---
Date of Service January 11, 2023 Assessment & Plan Admission and Anticipated Discharge Date Admission Date: January 10, 2023 Subjective Patient is seen and examined. She feels well, no complaints. Pain is under control with oral meds. Ambulating without dizziness Voiding without difficulty Tolerating regular diet with out N&V Flatus + BM + Bleeding is minimal No fever/ chills/ CP/ SOB/ N&V/ Leg pain Breast feeding without problems Vital Signs Temp Pulse Pulse Resp BP Pulse Ox O2 Del Method 01/11/23 08:25 36.9 C 97 H 16 113/76 99 Room Air 01/11/23 02:45 36.5 C 89 18 106/67 97 Room Air 01/11/23 01:00 18 96 01/10/23 23:55 16 96 01/10/23 22:55 18 96 01/10/23 23:35 36.6 C 88 16 106/71 97 Room Air 01/10/23 21:55 18 98 Lab Results 01/10/23 01/10/23 01/10/23 Range/Units 05:45 06:09 06:09 WBC 8.32 (4.8-10.8) K/ul RBC 4.01 L (4.20-5.40) M/uL Hgb 11.7 L (12.0-16.0) g/dl Hct 35.3 L (37.0-47.0) % MCV 88.0 (80.0-100.0) fL MCH 29.2 (25.0-34.0) pg MCHC 33.1 (32.0-36.0) g/dL RDW Std Deviation 45.0 (36.4-46.3) fL RDW Coeff of Erika 14.1 (11.5-14.5) % Plt Count 163 (130-400) K/uL MPV 11.5 (9.4-12.4) fL Immature Gran % (Auto) 3.0 % Neut % (Auto) 65.1 % Lymph % (Auto) 18.9 % [place] % (Auto) 11.3 % Eos % (Auto) 1.2 % Baso % (Auto) 0.5 % Neut # (Auto) 5.42 (1.40-6.50) K/uL Lymph # (Auto) 1.57 (1.2-3.4) K/uL [place] # (Auto) 0.94 H (0.11-0.59) K/uL Eos # (Auto) 0.10 (0-0.50) K/uL Baso # (Auto) 0.04 (0-0.2) K/uL Immature Gran # (Auto) 0.25 H (0.01-0.20) K/uL POC Glucose (70-99) mg/dl SARS-CoV-2, RNA, NAAT NEGATIVE (NEGATIVE) Blood Type A Positive Antibody Screen NEGATIVE 01/10/23 01/11/23 Range/Units 18:24 05:51 WBC 9.89 (4.8-10.8) K/ul RBC 3.76 L (4.20-5.40) M/uL Hgb 10.9 L (12.0-16.0) g/dl Hct 33.0 L (37.0-47.0) % MCV 87.8 (80.0-100.0) fL MCH 29.0 (25.0-34.0) pg MCHC 33.0 (32.0-36.0) g/dL RDW Std Deviation 45.1 (36.4-46.3) fL RDW Coeff of Erika 14.2 (11.5-14.5) % Plt Count 150 (130-400) K/uL MPV 11.0 (9.4-12.4) fL Immature Gran % (Auto) 0.9 % Neut % (Auto) 77.2 % Lymph % (Auto) 10.7 % [place] % (Auto) 9.7 % Eos % (Auto) 1.2 % Baso % (Auto) 0.3 % Neut # (Auto) 7.63 H (1.40-6.50) K/uL Lymph # (Auto) 1.06 L (1.2-3.4) K/uL [place] # (Auto) 0.96 H (0.11-0.59) K/uL Eos # (Auto) 0.12 (0-0.50) K/uL Baso # (Auto) 0.03 (0-0.2) K/uL Immature Gran # (Auto) 0.09 (0.01-0.20) K/uL POC Glucose 51 L* (70-99) mg/dl SARS-CoV-2, RNA, NAAT (NEGATIVE) Blood Type Antibody Screen PE: General: Alert, orientedx3, NAD CVS: S1S2 RRR Lungs; CTAB Abd: soft, NT, ND, BS+, fundus firm, below Umbilicus Incision/ NICHOLAS Dressing: Clean, dry, intact Perineum intact, Lochia rubra minimal Ext; NT, 1+/1+ edema, homans sign neg/ neg AP: 37 yo s/p C Section, pod# 1 VSS Afebrile doing well Continue routine postop care Encourage ambulation, PO intake All questions were answered D/C home tomorrow Results & Data Vital Signs (Past 12 Hours) Vital Signs Temp Pulse Pulse Resp BP Pulse Ox O2 Del Method 01/11/23 08:25 36.9 C 97 H 16 113/76 99 Room Air 01/11/23 02:45 36.5 C 89 18 106/67 97 Room Air 01/11/23 01:00 18 96 01/10/23 23:55 16 96 01/10/23 22:55 18 96 01/10/23 23:35 36.6 C 88 16 106/71 97 Room Air 01/10/23 21:55 18 98
[2023-01-11] MEDS ORDERED: bisacodyL 5 MG TABEC PO SCH (20:00)
[2023-01-12] MEDS: IBUPROFEN 600 MG TAB PO PRN ×3 (00:46→12:57)
[2023-01-12] MEDS: oxyCODONE/ACETAMINOPHEN 5mg/325mg TAB PO PRN ×3 (00:47→12:57)
[2023-01-12 06:15] LABS: Hematocrit (blood only) 29.7 % (37.0-47.0)
[2023-01-12] MEDS ORDERED: bisacodyL 10 MG SUPP PR PRN (09:09)
--- NOTE | 2023-01-12 09:48 | Obstetrical Progress Note ---
Date of Service January 12, 2023 Assessment & Plan (1) delivery delivered: POD #2 pt doing well no complaints d/c home with instructions Results & Data Vital Signs (Past 12 Hours) Vital Signs Temp Pulse Resp BP Pulse Ox O2 Del Method 01/12/23 00:45 36.7 C 84 18 106/72 97 Room Air
[2023-01-12] MEDS: DOCUSATE SODIUM 100 MG CAP PO SCH (10:18)
[2023-01-12] MEDS: SIMETHICONE 80 MG CHEW PO SCH ×2 (10:18→12:57)
[2023-01-12] MEDS: PRENATAL VITAMIN 1 TAB PO SCH (10:18)
[2023-01-12] MEDS: FERROUS SULFATE 325 MG TAB PO SCH (10:18)
== END 2023-01-12 16:30 | disposition home or self-care (01) | DRG 788 ==
LOC: 4S1 05:38 → EDSTATUS 07:30 → 4E2 11:00